=== PATIENT | female | born 1950 | race Caucasian/White ===

== ENCOUNTER 2016-03-05 15:13 | Inpatient (IN) | payer MEDICARE, OTHER ==
[~2016-03-05] VITALS: Ht 154.9 cm; Wt 87.0 kg
[~2016-03-05 15:13] MED LIST: GLIM2TAB PO; HYDR-3533 PO
[2016-03-05] MEDS ORDERED: SODIUM CHLOR 0.9% 1000 ML INJ 1,000 ML IV SCH (15:23)
[2016-03-05 15:24] VITALS: BP 170/92; PULSE 70; RESP 18; TEMP 98.2; O2SAT 98
--- NOTE | 2016-03-05 15:25 | PD ---
HPI Chief Complaint: PSYCH Time Seen by Provider: 15:25 Travel History International Travel<30 days: No Contact w/Intl Traveler<30days: No History of Present Illness HPI 65-year-old female presents to the emergency department by EMS for evaluation of altered mental status. Per EMS they were called by the patient's maid and her neighbor. Apparently the patient's maid came to clean her house today and noticed that the home was much more disheveled when it is normally very clean. She also noted that the patient had some behavioral changes and asked a neighbor to come talk to her. The neighbor also noted behavioral changes with the patient and called EMS. EMS reports the patient to be anxious with tachycardia around 120s. The patient is hyperverbal and is fixated on wanting us to "document" everything. 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 She has tangential speech and thoughts. She denies any medical complaints. Denies chest pain, shortness of breath, abdominal pain, headache, lightheadedness, dizziness, nausea, vomiting. Denies any drug or alcohol use. Denies suicidal or homicidal ideations. No other complaints. PFSH Past Medical History Cancer: No Cardiovascular Problems: No Diabetes: Yes Endocrine: No Genitourinary: No Hepatitis: No Hiatal Hernia: No Immune Disorder: No Musculoskeletal: No Neurologic: No Psychiatric: No Reproductive: No Respiratory: No Thyroid Disease: No Past Surgical History AICD: No Ear Surgery: No Eye Surgery: Yes (LEFT CATARACT EXTRACT., LEFT RETINAL REPAIR) Gynecologic Surgery: Yes (TAHBSO) Joint Replacement: No Neurologic Surgery: Yes (HEAD TRAUMA/ SCALP & CRANIAL REPAIR (MULTI SX'S)) Oral Surgery: No Pacemaker: No Other Surgery: Yes Social History Alcohol Use: Yes (rare) Tobacco Use: No Substance Use: No Allergies-Medications (Allergen,Severity, Reaction): Coded Allergies: Penicillin (Unverified Allergy, Severe, CONVULSIONS, 08/28/15) Darvon (Unverified Adverse Reaction, Severe, VOMITING, 08/28/15) Reported Meds & Prescriptions Reported Meds & Active Scripts Active Reported Hydrocodone-Acetaminophen 5-325 mg Tab 1 Tab PO Q4H PRN Lovastatin 20 Mg Tab 20 Mg PO DAILY Glyburide 5 Mg Tab 10 Mg PO BID Take with meals at the same time each day Review of Systems Except as stated in HPI: all other systems reviewed are Neg Physical Exam Narrative GENERAL: Well-nourished and well-developed female patient in no acute distress. SKIN: Warm and dry. HEAD: Normocephalic and atraumatic. EYES: No injection, drainage, or hyphema noted. PERRLA. EOMI. ENT: No nasal drainage noted. Oropharynx is clear. NECK: Supple and the trachea is midline. CARDIOVASCULAR: Regular rate and rhythm. RESPIRATORY: Breath sounds are equal bilaterally with no accessory muscle use, wheezing, rhonchi, or crackles. GASTROINTESTINAL: Abdomen is soft, non-tender, and nondistended. MUSCULOSKELETAL: No obvious deformities, swelling, cyanosis, or ecchymosis is present throughout the upper and lower extremities. Patient has full range of motion without any signs of neurovascular compromise. NEUROLOGICAL: Awake, alert, and oriented x 4. Normal speech and gait. Cranial nerves are grossly intact. Data Data Last Documented VS Vital Signs Date Time Temp Pulse Resp B/P Pulse Ox O2 Delivery O2 Flow Rate FiO2 03/05/16 15:57 97 18 169/74 98 Room Air 03/05/16 15:24 98.2 Orders Complete Blood Count With Diff (03/05/16 15:23) Comprehensive Metabolic Panel (03/05/16 15:23) Thyroid Stimulating Hormone (03/05/16 15:23) Drug Screen, Random Urine (03/05/16 15:23) Iv Access Insert/Monitor (03/05/16 15:23) Alcohol (Ethanol) (03/05/16 15:23) Psych Screen (03/05/16 15:23) Haloperidol Inj (Haldol Inj) (03/05/16 15:30) Lorazepam Inj (Ativan Inj) (03/05/16 15:30) Electrocardiogram (03/05/16 15:23) Sodium Chlor 0.9% 1000 Ml Inj (Ns 1000 M (03/05/16 15:23) Labs Laboratory Tests Test 03/05/16 15:30 White Blood Count 9.9 TH/MM3 Red Blood Count 4.17 MIL/MM3 Hemoglobin 12.5 GM/DL Hematocrit 36.7 % Mean Corpuscular Volume 88.1 FL Mean Corpuscular Hemoglobin 30.0 PG Mean Corpuscular Hemoglobin 34.0 % Concent Red Cell Distribution Width 13.9 % Platelet Count 352 TH/MM3 Mean Platelet Volume 7.6 FL Neutrophils (%) (Auto) 78.6 % Lymphocytes (%) (Auto) 13.5 % Monocytes (%) (Auto) 7.3 % Eosinophils (%) (Auto) 0.3 % Basophils (%) (Auto) 0.3 % Neutrophils # (Auto) 7.8 TH/MM3 Lymphocytes # (Auto) 1.3 TH/MM3 Monocytes # (Auto) 0.7 TH/MM3 Eosinophils # (Auto) 0.0 TH/MM3 Basophils # (Auto) 0.0 TH/MM3 CBC Comment DIFF FINAL Differential Comment Sodium Level 139 MEQ/L Potassium Level 3.8 MEQ/L Chloride Level 105 MEQ/L Carbon Dioxide Level 25.0 MEQ/L Anion Gap 9 MEQ/L Blood Urea Nitrogen 18 MG/DL Creatinine 0.87 MG/DL Estimat Glomerular Filtration 65 ML/MIN Rate Random Glucose 160 MG/DL Calcium Level 9.1 MG/DL Total Bilirubin 1.2 MG/DL Aspartate Amino Transf 15 U/L (AST/SGOT) Alanine Aminotransferase 32 U/L (ALT/SGPT) Alkaline Phosphatase 85 U/L Total Protein 7.9 GM/DL Albumin 4.1 GM/DL Thyroid Stimulating Hormone 1.630 uIU/ML 3rd Gen Ethyl Alcohol Level LESS THAN 3 MG/DL [facility] Medical Decision Making Medical Screen Exam Complete: Yes Emergency Medical Condition: Yes Differential Diagnosis Differential: Depression versus adjustment reaction versus anxiety versus PTSD versus psychosis NOS versus mood disorder NOS versus substance induced mood disorder versus ODD versus adjustment reaction versus schizophrenia versus bipolar disorder versus schizoaffective versus electrolyte abnormality Narrative Course 65-year-old female is brought to the emergency department for evaluation of behavioral disturbances. Patient is afebrile. Vital signs are stable. Physical examination is unremarkable. Patient is hyperverbal and has tangential speech. She seems in a manic episode and unable to make decisions for herself and therefore is placed under a Wayne Act by Dr. Hassan. IV access is obtained, labs are drawn and sent. Patient is given 2 mg of Ativan IV and 5 mg of Haldol IV. If labs are unremarkable she will be medically cleared for psychiatric evaluation and disposition. CBC is unremarkable. CMP is unremarkable. EtOH is less than 3. Patient has remained stable and without complaint while here in the emergency department. She is medically cleared for psychiatric evaluation and disposition. I discussed the case with my attending physician Dr. Hassan who is aware of the patients history, physical examination findings, and treatment plan. Diagnosis Primary Impression: Mood disorder Kathya Bentley Mar 05, 2016 15:25
[2016-03-05] MEDS ORDERED: LORazepam 2 MG/ML VIAL IV ONE (15:30)
[2016-03-05] MEDS ORDERED: HALOPERIDOL LACTATE 5 MG/ML AMP IV ONE (15:30)
[2016-03-05 15:57] VITALS: BP 169/74; PULSE 97; RESP 18; O2SAT 98
[2016-03-05 16:08] LABS: AUTOMATED NEUTROPHIL # 7.8 TH/MM3 (1.8-7.7); BASOPHIL % 0.3 % (0.0-2.0); EOSINOPHIL % 0.3 % (0.0-4.0); HEMATOCRIT 36.7 % (35.0-46.0); HEMO FLAGS DIFF FINAL; LYMPH % 13.5 % (9.0-44.0); LYMPHOCYTE # 1.3 TH/MM3 (1.0-4.8); MEAN CELL VOLUME 88.1 FL (80.0-100.0); MONO % 7.3 % (0.0-8.0); NEUT % 78.6 % (16.0-70.0); PLATELET COUNT 352 TH/MM3 (150-450); RED BLOOD COUNT 4.17 MIL/MM3 (4.00-5.30); RED CELL DISTRIBUTION WIDTH 13.9 % (11.6-17.2); WHITE BLOOD COUNT 9.9 TH/MM3 (4.0-11.0)
[2016-03-05] MEDS ORDERED: LOVA20TA PO (16:08)
[2016-03-05] MEDS ORDERED: GLYB5TAB3 PO (16:08)
[2016-03-05] MEDS ORDERED: HYDR-3516 PO (16:08)
[2016-03-05 16:31] LABS: ALT (GPT) 32 U/L (10-53); ANION GAP 9 MEQ/L (5-15); AST (GOT) 15 U/L (15-37); BLOOD UREA NITROGEN 18 MG/DL (7-18); CHLORIDE 105 MEQ/L (98-107); GLOMERULAR FILTRATION RATE 65 ML/MIN (>89); POTASSIUM 3.8 MEQ/L (3.5-5.1); SODIUM (NA) 139 MEQ/L (136-145)
[2016-03-05 16:40] LABS: ALKALINE PHOSPHATASE 85 U/L (45-117); TOTAL BILIRUBIN ADULT 1.2 MG/DL (0.2-1.0)
--- NOTE | 2016-03-05 18:40 | PD ---
Data Data Last Documented VS Vital Signs Date Time Temp Pulse Resp B/P Pulse Ox O2 Delivery O2 Flow Rate FiO2 03/05/16 15:57 97 18 169/74 98 Room Air 03/05/16 15:24 98.2 Orders Complete Blood Count With Diff (03/05/16 15:23) Comprehensive Metabolic Panel (03/05/16 15:23) Thyroid Stimulating Hormone (03/05/16 15:23) Drug Screen, Random Urine (03/05/16 15:23) Iv Access Insert/Monitor (03/05/16 15:23) Alcohol (Ethanol) (03/05/16 15:23) Psych Screen (03/05/16 15:23) Haloperidol Inj (Haldol Inj) (03/05/16 15:30) Lorazepam Inj (Ativan Inj) (03/05/16 15:30) Electrocardiogram (03/05/16 15:23) Sodium Chlor 0.9% 1000 Ml Inj (Ns 1000 M (03/05/16 15:23) Urinalysis - C+S If Indicated (03/05/16 18:09) Labs Laboratory Tests Test 03/05/16 15:30 White Blood Count 9.9 TH/MM3 Red Blood Count 4.17 MIL/MM3 Hemoglobin 12.5 GM/DL Hematocrit 36.7 % Mean Corpuscular Volume 88.1 FL Mean Corpuscular Hemoglobin 30.0 PG Mean Corpuscular Hemoglobin 34.0 % Concent Red Cell Distribution Width 13.9 % Platelet Count 352 TH/MM3 Mean Platelet Volume 7.6 FL Neutrophils (%) (Auto) 78.6 % Lymphocytes (%) (Auto) 13.5 % Monocytes (%) (Auto) 7.3 % Eosinophils (%) (Auto) 0.3 % Basophils (%) (Auto) 0.3 % Neutrophils # (Auto) 7.8 TH/MM3 Lymphocytes # (Auto) 1.3 TH/MM3 Monocytes # (Auto) 0.7 TH/MM3 Eosinophils # (Auto) 0.0 TH/MM3 Basophils # (Auto) 0.0 TH/MM3 CBC Comment DIFF FINAL Differential Comment Sodium Level 139 MEQ/L Potassium Level 3.8 MEQ/L Chloride Level 105 MEQ/L Carbon Dioxide Level 25.0 MEQ/L Anion Gap 9 MEQ/L Blood Urea Nitrogen 18 MG/DL Creatinine 0.87 MG/DL Estimat Glomerular Filtration 65 ML/MIN Rate Random Glucose 160 MG/DL Calcium Level 9.1 MG/DL Total Bilirubin 1.2 MG/DL Aspartate Amino Transf 15 U/L (AST/SGOT) Alanine Aminotransferase 32 U/L (ALT/SGPT) Alkaline Phosphatase 85 U/L Total Protein 7.9 GM/DL Albumin 4.1 GM/DL Thyroid Stimulating Hormone 1.630 uIU/ML 3rd Gen Ethyl Alcohol Level LESS THAN 3 MG/DL MDM Supervised Visit with JESSEE: Yes Narrative Course The history, exam, and medical decision-making in the associated midlevel provider note were completed with my assistance. I reviewed and agree with the findings presented. I attest that I had a [id number] encounter with the patient on the same day, and personally performed and documented my assessment and findings in the medical record. *My assessment and Findings: This is a 65-year-old female who presents to the emergency department having been found by her park superintendent to be disorganized and messy which is unlike her. She had a neighbor come over who confirm that the patient was acting bizarrely. 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 She points to multiple phone numbers which are written on the top of a folder but can't articulate why she needs to call all of these people. She appears to be an acute mica and her decision-making capacity is impaired. Patient was given 2 mg of Ativan and 5 Haldol and she was placed under a Wayne act for psychiatric evaluation. Diagnosis Primary Impression: Mood disorder Sonal Hassan MD Mar 05, 2016 18:40
[2016-03-05 19:25] VITALS: BP 162/76; PULSE 94; RESP 14; O2SAT 99
[2016-03-05 19:29] LABS: BACTERIA, URINE RARE /hpf; BLOOD, URINE NEG (NEG); COMMENT (UR) CULT NOT INDICATED; CULTURE IF INDICATED CULT NOT INDICATED; GLUCOSE,URINE TRACE mg/dL (NEG); HYALINE CAST, URINE 1 /lpf (RARE); KETONE, URINE 40 mg/dL (NEG); MUCUS URINE MOD /lpf (OCC); NITRITE,URINE NEG (NEG); PH, URINE 5.5 (5.0-8.5); SQUAMOUS EPITHELIAL CELL URINE 2 /hpf (0-5); URINE COLOR YELLOW (YELLW/STRAW)
[2016-03-05 19:32] LABS: AMPHETAMINE, URINE NEG (NEG); BARBITURATES, URINE NEG (NEG); COCAINE, URINE NEG (NEG)
[2016-03-05 20:30] VITALS: BP 156/68; PULSE 90; RESP 16; O2SAT 96
[2016-03-05 21:41] VITALS: BP 158/72; PULSE 89; RESP 16; O2SAT 97
--- NOTE | 2016-03-05 21:57 | EKG ---
Date Performed: 03/05/2016 Time Performed: 15:43:46 PTAGE: 65 years EKG: SINUS TACHYCARDIA LOW QRS VOLTAGE IN PRECORDIAL LEADS Nonspecific ST and T wave abnormaliti es ABNORMAL RHYTHM ECG PREVIOUS TRACING : 04/15/2015 14.27 Rate has increased DOCTOR: Bryan Person Interpretating Date/Time 03/05/2016 21:56:28
[2016-03-05 22:48] VITALS: BP 139/86; PULSE 95; RESP 19; TEMP 98.7; O2SAT 97
[2016-03-06] MEDS ORDERED: diphenhydrAMINE HCL 50 MG/ML VIAL IM PRN (01:00)
[2016-03-06] MEDS ORDERED: ALUMINUM/MAGNESIUM/SIMETH 30 ML CUP PO PRN ×2 (01:00→11:15)
[2016-03-06] MEDS ORDERED: ACETAMINOPHEN 325 MG TAB PO PRN ×2 (01:00→11:15)
[2016-03-06] MEDS ORDERED: MAGNESIUM HYDROXIDE SUSP 30 ML CUP PO PRN ×2 (01:00→11:15)
[2016-03-06] MEDS ORDERED: diphenhydrAMINE HCL 50 MG CAP PO PRN ×2 (01:00→11:15)
[2016-03-06 01:20] VITALS: BP 162/79; PULSE 87; RESP 18; TEMP 97.1; O2SAT 95
[2016-03-06 06:13] VITALS: BP 140/88; PULSE 86; RESP 16; TEMP 97.4; O2SAT 98
--- NOTE | 2016-03-06 11:00 | PD.CONS ---
[facility] By [facility] Reason for Consult Diabetic symptoms? Primary Care Physician Bjorn Herrera MD Diagnoses: History of Present Illness Patient is 65-year-old female who came into the hospital after neighbor in house keeper states patient noted behavioral changes. She is now admitted to inpatient psychiatry unit for further evaluation. Consulted for medical management. Patient seen today. Speech continues to be pressured. Anxious. States she is trying to get some rest. Reports she has diabetes, high cholesterol. Her diabetes is well managed according to her. She is being followed by Dr. Da Silva as an outpatient and states that her hemoglobin A1c is okay, and will have a repeat in 6 months. She only takes glyburide. She also takes pravastatin for high cholesterol. States she is been compliant with her medication. Reports she's been in a lot of stress lately unable to eat and sleep for 5 days. States that her long-time friend recently and her mother is also dieting at [facility] and being cared for by hospice. States that she is trying to get all her son and other people but unable to because all her contact numbers are on her cell phone which was Locked away. Otherwise, denies pain and discomfort. Denies SOB/ dyspnea. Denies chestpain, palpitations, headaches, dizziness. Denies fevers, chills, n/v/d. Review of Systems Constitutional: DENIES: Fever, Chills, Change in appetite Endocrine: DENIES: Heat/cold intolerance Eyes: DENIES: Blurred vision, Eye pain Other Negative except for what is noted on history of present illness. Past Family Social History Allergies: Coded Allergies: Penicillin (Unverified Allergy, Severe, CONVULSIONS, 08/28/15) Darvon (Unverified Adverse Reaction, Severe, VOMITING, 08/28/15) Past Medical History Diabetes Past Surgical History Left cataract extraction Left retinal repair Total abdominal hysterectomy and bilateral salpingo-oophorectomy Sculpin cranial repair secondary to head trauma Reported Medications Hydrocodone-Acetaminophen 5-325 mg Tab 1 Tab PO Q4H PRN Lovastatin 20 Mg Tab 20 Mg PO DAILY Glyburide 5 Mg Tab 10 Mg PO BID Take with meals at the same time each day Active Ordered Medications Current Medications Medications (Trade) Dose Ordered Sig/Evita Route Start Time Stop Time Status Last Admin (Atarax) 50 mg Q6H PRN PO 03/06/16 01:00 (Benadryl) 50 mg Q6H PRN PO 03/06/16 01:00 (Benadryl Inj) 50 mg Q6H PRN IM 03/06/16 01:00 (Tylenol) 650 mg Q4H PRN PO 03/06/16 01:00 (Milk Of Magnesia Liq) 30 ml DAILY PRN PO 03/06/16 01:00 (Mag-Al Plus Susp Liq) 30 ml Q6H PRN PO 03/06/16 01:00 (Diabeta) 10 mg BID PO 03/06/16 09:00 (Pravachol) 20 mg DAILY PO 03/06/16 09:00 Family History Diabetes in her family Social History Occasional alcohol use Denies tobacco use Denies illicit drug use Physical Exam Vital Signs Vital Signs Date Time Temp Pulse Resp B/P Pulse Ox O2 Delivery O2 Flow Rate FiO2 03/06/16 06:13 97.4 86 16 140/88 98 03/06/16 01:20 97.1 87 18 162/79 95 03/05/16 22:48 98.7 95 19 139/86 97 Room Air 03/05/16 21:41 89 16 158/72 97 Room Air 03/05/16 20:30 90 16 156/68 96 Room Air 03/05/16 19:25 94 14 162/76 99 Room Air 03/05/16 15:57 97 18 169/74 98 Room Air 03/05/16 15:24 98.2 70 18 170/92 98 Physical Exam GENERAL: This is a well-nourished, well-developed patient, in no apparent distress. SKIN: No rashes, ecchymoses or lesions. Cool and dry. HEAD: Atraumatic. Normocephalic. No temporal or scalp tenderness. EYES: Pupils equal round and reactive. Extraocular motions intact. No scleral icterus. No injection or drainage. ENT: Nose without bleeding. Throat without erythema. Uvula midline. Airway patent. NECK: Trachea midline. No JVD or lymphadenopathy. Supple, nontender, no meningeal signs. CARDIOVASCULAR: Regular rate and rhythm without murmurs, gallops, or rubs. RESPIRATORY: Clear to auscultation. Breath sounds equal bilaterally. No wheezes , rales, or rhonchi. GASTROINTESTINAL: Abdomen soft, non-tender, nondistended. No hepato-splenomegaly , or palpable masses. No guarding. MUSCULOSKELETAL: Extremities without clubbing, cyanosis, pitting +2 bilateral lower extremity edema. No joint tenderness, effusion, or edema noted. No calf tenderness. Negative Homans sign bilaterally. NEUROLOGICAL: Awake and alert. Cranial nerves II through XII intact. Motor and sensory grossly within normal limits. Five out of 5 muscle strength in all muscle groups. Normal speech. Laboratory Laboratory Tests Test 03/05/16 03/05/16 15:30 19:05 White Blood Count 9.9 Red Blood Count 4.17 Hemoglobin 12.5 Hematocrit 36.7 Mean Corpuscular Volume 88.1 Mean Corpuscular Hemoglobin 30.0 Mean Corpuscular Hemoglobin 34.0 Concent Red Cell Distribution Width 13.9 Platelet Count 352 Mean Platelet Volume 7.6 Neutrophils (%) (Auto) 78.6 Lymphocytes (%) (Auto) 13.5 Monocytes (%) (Auto) 7.3 Eosinophils (%) (Auto) 0.3 Basophils (%) (Auto) 0.3 Neutrophils # (Auto) 7.8 Lymphocytes # (Auto) 1.3 Monocytes # (Auto) 0.7 Eosinophils # (Auto) 0.0 Basophils # (Auto) 0.0 CBC Comment DIFF FINAL Differential Comment Sodium Level 139 Potassium Level 3.8 Chloride Level 105 Carbon Dioxide Level 25.0 Anion Gap 9 Blood Urea Nitrogen 18 Creatinine 0.87 Estimat Glomerular Filtration 65 Rate Random Glucose 160 Calcium Level 9.1 Total Bilirubin 1.2 Aspartate Amino Transf 15 (AST/SGOT) Alanine Aminotransferase 32 (ALT/SGPT) Alkaline Phosphatase 85 Total Protein 7.9 Albumin 4.1 Thyroid Stimulating Hormone 1.630 3rd Gen Ethyl Alcohol Level LESS THAN 3 Urine Color YELLOW Urine Turbidity HAZY Urine pH 5.5 Urine Specific [place] 1.030 Urine Protein 30 Urine Glucose (UA) TRACE Urine Ketones 40 Urine Occult Blood NEG Urine Nitrite NEG Urine Bilirubin NEG Urine Urobilinogen LESS THAN 2.0 Urine Leukocyte Esterase NEG Urine WBC 2 Urine Squamous Epithelial 2 Cells Urine Bacteria RARE Urine Hyaline Casts 1 Urine Mucus MOD Microscopic Urinalysis Comment CULT NOT INDICATED Urine Opiates Screen NEG Urine Barbiturates Screen NEG Urine Amphetamines Screen NEG Urine Benzodiazepines Screen NEG Urine Cocaine Screen NEG Urine Cannabinoids Screen NEG Result Diagram: 03/05/16 1530 03/05/16 1530 Assessment and Plan Problem List: (1) DM type 2 (diabetes mellitus, type 2) ICD Code: E11.9 Status: Chronic (2) HLD (hyperlipidemia) ICD Code: E78.5 Status: Acute Assessment and Plan Patient is 65-year-old female who came into the hospital after neighbor in house keeper states patient noted behavioral changes. She is now admitted to inpatient psychiatry unit for further evaluation. Consulted for medical management. Behavioral disturbances -managed by psychiatry team DM2 - patient is taking glyburide 5 mg twice a day at home with meals. Continue home meds. - Follow-up hemoglobin A1c HLD - cont pravastatin - Follow-up lipid profile Labs and been reviewed CBC unremarkable, BMP unremarkable, UA negative DVT Prop early ambulation Thank you for this consultation. We will follow patient with you. Written by Jaxson Isidro, acting as scribe for Dr. Finnegan on 03/06/16 at 14: 52. Code Status Full Code Discussed Condition With Patient, nursing Attending Statement The documentation accurately reflects the work performed [id number] by me on at 14:52. Jaxson Hopson Mar 06, 2016 11:00 Torin Romo MD Mar 07, 2016 23:23
[2016-03-06] MEDS: glyBURIDE 5 MG TAB PO SCH ×2 (11:03→21:06)
[2016-03-06] MEDS: PRAVASTATIN SOD 20 MG TAB PO SCH (11:03)
--- NOTE | 2016-03-06 11:29 | HHI.HP ---
Provisional Diagnosis Admission Date Mar 06, 2016 at 00:16 [place]. Mood disorder F 39 Certification of Person's Competence To Provide Express and Informed Consent I have personally examined Larissa Blandon , a person being served at [facility] on, Mar 06, 2016 11:16. Express and informed consent means consent voluntarily given in writing, by a competent person, after sufficient explanation and disclosure of the subject matter involved to enable the person to make a knowing and willful decision without any element of force, fraud, deceit, duress, or other form of constraint or coercion. This person is 18 years of age or older, is not now known to be incompetent to consent to treatment with a guardian advocate, and does not have a health care surrogate or proxy currently making medical treatment decisions. I have found this person to be one of the following: [] Competent to provide express and informed consent, as defined above, for voluntary admission to this facility and is competent to provide express and informed consent for treatment. He/she has the consistent capacity to make well reasoned, willful, and knowing decisions concerning his or her medical or mental health treatment. The person fully and consistently understands the purpose of the admission for examination/placement and is fully capable of personally exercising all rights assured [place] Incompetent to provide express and informed consent to voluntary admission, and this is incompetent to provide express and informed consent to treatment. The person must be transferred to involuntary status and a petition for a guardian advocate filed with the Circuit Court. [x] Refusing to provide express and informed consent to voluntary admission but is competent to provide express and informed consent for treatment. The person must be discharged or transferred to involuntary status. Form shall be completed within 24 hours of a person's arrival at the receiving facility and filed in the clinical record of each person: 1. Admitted on a voluntary basis 2. Permitted to provide express and informed consent to his/her own treatment 3. Allowed to transfer from involuntary to voluntary status 4. Prior to permitting a person to consent to his or her own treatment after having been previously found incompetent to consent to treatment. History of Present Illness Capacity: Has Capacity HPI Patient is a 65-year-old white female who comes here under [place] act signed by Sonal mooney dated March 05, 2016 3:26 PM stating patient is disorganized manic symptoms patient is disorganized with pressured speech agitated confused unable to make her own decisions. Patient is seen screened in the ED urine toxicology negative. Patient was given 2 mg Ativan and 5 mg of Haldol IV in the ED. It appears the paramedics were called the patient's home by the patient 's made and patient's neighbor. The made noted when she came to help clean the house that the house was markedly disheveled and in disarray and that the patient was hyperverbal fixated on wanting things to be documented for her. The paramedics also noted that she was tachycardic with a rate in the 120s she was tangential circumstantial but showing no insight into her problems. Thus [place] act was started by the emergency department physician. At the present time patient sitting in her room nurse Radha and counselor Raeann present throughout session patient continues markedly tangential circumstantial hyperverbal needing 15 minutes to respond to the question "why are you here" patient became somewhat angry and irritable with the multiple attempts I made to redirect her to focus on the question. 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 She states she is from [place] and that's why she is somewhat hyper talking fast and racing thoughts. She denies any prior psychiatric contact hospitalization his psychotropic medications. She also focus in affect that she has a 90 30 mother who was in a alf and hospice at the present time that patient is not slept for 4+ days related to this she denies any alcohol or drugs with this denies any voices or visions of this denies any suicidality or homicidality. Need to answer my part to describe the behaviors that related to a bipolar disorder and to describe the effects of the medication as helping to continuing them is met with denial and irritability. However at the present time patient does meet criteria for further observation and assessment under the [place] act I'll do first opinion requests a second opinion that for she does have capacity to make she is concerning treatment at this time. At this time we'll offer her relief Benadryl Tylenol and Atarax. Review of Systems ROS Limitations: Altered Mental Status, Uncooperative, Poor Historian Constitutional: DENIES: Diaphoretic episodes, Fatigue, Fever, Weight gain, Weight loss, Chills, Dizziness, Change in appetite, Night Sweats Endocrine: DENIES: Abnorml menstrual pattern, Heat/cold intolerance, Polydipsia , Polyuria, Polyphagia Eyes: DENIES: Blurred vision, Diplopia, Eye inflammation, Eye pain, Vision loss , Photosensitivity, Double Vision Ears, nose, mouth, throat: DENIES: Tinnitus, Hearing loss, Vertigo, Nasal discharge, Oral lesions, Throat pain, Hoarseness, Ear Pain, Running Nose, Epistaxis, Sinus Pain, Toothache, Odynophagia Respiratory: DENIES: Apneas, Cough, Snoring, Wheezing, Hemoptysis, Sputum production, Shortness of breath Cardiovascular: DENIES: Chest pain, Palpitations, Syncope, Dyspnea on Exertion , PND, Lower Extremity Edema, Orthopnea, Claudication Gastrointestinal: DENIES: Abdominal pain, Black stools, Bloody stools, Constipation, Diarrhea, Nausea, Vomiting, Difficulty Swallowing, Anorexia Genitourinary: DENIES: Abnormal vaginal bleeding, Dysmenorrhea, Dyspareunia, Sexual dysfunction, Urinary frequency, Urinary incontinence, Urgency, Hematuria , Dysuria, Nocturia, Vaginal discharge Musculoskeletal: DENIES: Joint pain, Muscle aches, Stiffness, Joint Swelling, Back pain, Neck pain Integumentary: DENIES: Abnormal pigmentation, Pruritus, Rash, Nail changes, Breast masses, Breast skin changes, Nipple discharge Hematologic/lymphatic: DENIES: Bruising, Lymphadenopathy Immunologic/allergic: DENIES: Eczema, Urticaria Psychiatric: COMPLAINS OF: Agitation Other Insomnia, rapid pressured speech, racing thoughts Past Psych History Psychological trauma history Denies Violence risk - others (6 mos) Denies Violence risk - self (6 mos) Denies Substance Abuse History Drugs/Alcohol past 12 months Denies Past Family Social History Coded Allergies: Penicillin (Unverified Allergy, Severe, CONVULSIONS, 08/28/15) Darvon (Unverified Adverse Reaction, Severe, VOMITING, 08/28/15) Past Medical History 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" Reported Medications Hydrocodone-Acetaminophen 5-325 mg Tab1 Tab PO Q4H PRN (PAIN) Ref 0 03/05/16 Lovastatin 20 Mg Tab20 Mg PO DAILY #30 TAB Ref 0 03/05/16 Glyburide 5 Mg Tab10 Mg PO BID #60 TAB Ref 0 Take with meals at the same time each day 03/05/16 Current Medications Medications (Trade) Dose Ordered Sig/Evita Route Start Time Stop Time Status Last Admin (Atarax) 50 mg Q6H PRN PO 03/06/16 01:00 (Benadryl) 50 mg Q6H PRN PO 03/06/16 01:00 (Benadryl Inj) 50 mg Q6H PRN IM 03/06/16 01:00 (Tylenol) 650 mg Q4H PRN PO 03/06/16 01:00 (Milk Of Magnesia Liq) 30 ml DAILY PRN PO 03/06/16 01:00 (Mag-Al Plus Susp Liq) 30 ml Q6H PRN PO 03/06/16 01:00 (Diabeta) 10 mg BID PO 03/06/16 09:00 03/06/16 11:03 (Pravachol) 20 mg DAILY PO 03/06/16 09:00 03/06/16 11:03 Family History Vague history mental health issues with her mother Social History Patient is has an adult son and daughter Patient's Strengths (min. 2) Patient verbal irritable axis health care Physical Exam Patient seen screen in ED exam reviewed and agreed with the vital signs blood pressure 140/88 pulse 86 respirations 16 Vital Signs Vital Signs Date Time Temp Pulse Resp B/P Pulse Ox O2 Delivery O2 Flow Rate FiO2 03/06/16 06:13 97.4 86 16 140/88 98 03/05/16 22:48 Room Air Mental Status Examination Alert oriented white female stockily built with thick somewhat disheveled very dark red louis colored hair with intense eye contact Appearance Somewhat disheveled Speech: Pressured, Rapid, Circumstantial, Tangential Orientation: x3 Memory: Unremarkable Thought Process: Circumstantial, Loose Association, Tangential Thought Content: Unremarkable Hallucination Type: None Attention and Concentration: Easily Distracted Suicidal Ideation: No Previous Suicide Attempts: No Homicidal Ideation: No Previous Homicide Attempts: No Insight: Poor Judgement: Poor Affect: Other (increased range and intensity) Mood: Irritable, Manic Motor Activity: Normal gait Assessment & Plan Problem List: (1) Mood disorder ICD Code: F39 Assessment & Plan Estimated LOS: 5-7 days patient showing signs of mica rapid pressured speech grandiosity hyperverbal reality markedly tangential and circumstantial. It appears she did slow somewhat with the medications given in the ED (IV Ativan and Haldol). For now we'll continue to observe under the [place] act patient does meet criteria to be retained at this time I will do first opinion requests a second opinion Discharge Planning To be determined Request HC Surrog/Guard Advoc?: No Isidro Keane MD Mar 06, 2016 11:29
[2016-03-06] MEDS: hydrOXYzine HCL 50 MG TAB PO PRN (18:28)
[2016-03-06 19:45] VITALS: BP 122/68; PULSE 86; RESP 16; TEMP 97.4; O2SAT 98
[2016-03-07 06:05] VITALS: BP 173/84; PULSE 91; RESP 16; TEMP 97.9
[2016-03-07] MEDS: PRAVASTATIN SOD 20 MG TAB PO SCH (09:00)
[2016-03-07] MEDS: glyBURIDE 5 MG TAB PO SCH ×2 (09:00→21:41)
--- NOTE | 2016-03-07 18:38 | PD.CONS ---
Provisional Diagnosis Admission Date Mar 06, 2016 at 00:16 [place]. Mood disorder F 39 History of Present Illness Service Psychiatry Consult Requested By Psychiatry Reason for Consult 2nd Opinion Primary Care Physician Bjorn Herrera MD HPI Pt seen and discussed with RN. Chart reviewed. Pt is a 65 YOWF who presents to [facility] under a BA taken out in ED due to mica. Pt was disorganized and agiated in the ED and was given haldol and ativan due to agitation. Pt is noted to have pressured speech and tangential thought process. 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 She admits to poor sleep and states that she hasn't slept in 4 days prior to hospitalization but did sleep yesterday. She admits to being under a lot of stress and states that her house is disheveled and in disarray which is "not me at all". However, pt refuses treatment stating that she will doesn't think that she needs medication or hospitalization. Staff report that pt has been intrusive and paranoid, reporting that something is living under her bed. She denies SI/HI. Past Family Social History Coded Allergies: Penicillin (Unverified Allergy, Severe, CONVULSIONS, 08/28/15) Darvon (Unverified Adverse Reaction, Severe, VOMITING, 08/28/15) Reported Medications Hydrocodone-Acetaminophen 5-325 mg Tab1 Tab PO Q4H PRN (PAIN) Ref 0 03/05/16 Lovastatin 20 Mg Tab20 Mg PO DAILY #30 TAB Ref 0 03/05/16 Glyburide 5 Mg Tab10 Mg PO BID #60 TAB Ref 0 Take with meals at the same time each day 03/05/16 Current Medications Medications (Trade) Dose Ordered Sig/Evita Route Start Time Stop Time Status Last Admin (Atarax) 50 mg Q6H PRN PO 03/06/16 01:00 03/06/16 18:28 (Tylenol) 650 mg Q4H PRN PO 03/06/16 01:00 (Milk Of Magnesia Liq) 30 ml DAILY PRN PO 03/06/16 01:00 (Mag-Al Plus Susp Liq) 30 ml Q6H PRN PO 03/06/16 01:00 (Diabeta) 10 mg BID PO 03/06/16 09:00 1/8/17 09:00 (Pravachol) 20 mg DAILY PO 03/06/16 09:00 03/07/16 09:00 (Benadryl) 50 mg HS PRN PO 03/06/16 11:15 Family History mother with dementia Social History lives alone, previously lived in [place] prior to moving to [place], retired, but 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 Patient's Strengths (min. 2) Educated, access to health care Physical Exam Vital Signs Vital Signs Date Time Temp Pulse Resp B/P Pulse Ox O2 Delivery O2 Flow Rate FiO2 03/07/16 06:05 97.9 91 16 173/84 03/06/16 19:45 98 03/05/16 22:48 Room Air Mental Status Examination Speech: Pressured, Rapid, Circumstantial, Tangential Orientation: x3 Memory: Unremarkable Thought Process: Circumstantial, Loose Association, Tangential Thought Content: Unremarkable Hallucination Type: None Attention and Concentration: Easily Distracted Suicidal Ideation: No Previous Suicide Attempts: No Homicidal Ideation: No Previous Homicide Attempts: No Insight: Poor Judgement: Poor Affect: Other (elevated) Mood: Manic Motor Activity: Normal gait Assessment & Plan Problem List: (1) Mood disorder ICD Code: F39 Assessment & Plan I agree that pt meets BA criteria. 2nd opinon completed. Estimated LOS: days Request HC Surrog/Guard Advoc?: Muriel Quintero MD Mar 07, 2016 18:38
[2016-03-07 19:38] VITALS: BP 167/78; PULSE 92; RESP 18; TEMP 98.3; O2SAT 99
[2016-03-07] MEDS: hydrOXYzine HCL 50 MG TAB PO PRN (22:36)
[2016-03-08 06:06] VITALS: BP 162/80; PULSE 88; RESP 18; TEMP 98.3; O2SAT 96
[2016-03-08 08:00] LABS: ANION GAP 8 MEQ/L (5-15); BICARBONATE 27.3 MEQ/L (21.0-32.0); BLOOD UREA NITROGEN 13 MG/DL (7-18); CHLORIDE 106 MEQ/L (98-107); GLOMERULAR FILTRATION RATE 97 ML/MIN (>89); HDL CHOLESTEROL 59.2 MG/DL (40.0-60.0); LDL CHOLESTEROL 93 MG/DL (0-99); SODIUM (NA) 141 MEQ/L (136-145)
[2016-03-08] MEDS: glyBURIDE 5 MG TAB PO SCH ×2 (09:00→21:25)
[2016-03-08] MEDS: PRAVASTATIN SOD 20 MG TAB PO SCH (09:00)
--- NOTE | 2016-03-08 11:28 | HHI.PYPN ---
Subjective Remarks Patient was seen and discussed with the entry level staff accountant. Patient reported that she has been here moved from [place] to look after her mother was dying. Patient does not realize but she does admit to having some problem with sleep for 4 or 5 days and her mind was racing and she became talkative and came to the hospital. But patient claimed that she is the only one who is looking after her mother and has power of supervisor nurse and she is worried patient could be reassured. She denied any suicidal and/or homicidal ideation or plan. She denied any grandiose delusion at this time or any spending spree. But she claimed that she is from [facility] and always talks fast. She agreed to stay for few more days to stabilize on the medication. No side effects were complained. No behavior problem reported. Continue with the same treatment Review of Systems Except as stated in HPI: all other systems reviewed are Neg Psychiatric: COMPLAINS OF: Anxiety, Depression Objective Alert: Yes [place]: Person, Place, Situation Mood: Anxious, Depressed, Other (worried about her mother) Affect: Labile Memory Intact: Recent (mildly impaired) Hallucinations: Other (patient denies any active auditory or visual hallucination) Delusions: No Delusion Type: Other (patient had some rapid speech but other than that denied any grandiose delusion or any spending spree) Suicidal: Ideation (patient denies any suicidal ideation intentions or plan) Homicidal: Ideation (denied any homicidal ideation intentions or plan) Insight/Judgement Seems fair Remarks Gait normal language normal. Fund of knowledge average. Attention and concentration normal Labs Test 03/08/16 06:57 Sodium Level 141 MEQ/L Potassium Level 4.0 MEQ/L Chloride Level 106 MEQ/L Carbon Dioxide Level 27.3 MEQ/L Anion Gap 8 MEQ/L Blood Urea Nitrogen 13 MG/DL Creatinine 0.62 MG/DL Estimat Glomerular Filtration 97 ML/MIN Rate Random Glucose 116 MG/DL Calcium Level 8.6 MG/DL Triglycerides Level 111 MG/DL Cholesterol Level 174 MG/DL LDL Cholesterol 93 MG/DL HDL Cholesterol 59.2 MG/DL Cholesterol/HDL Ratio 2.93 RATIO Vitals/IOs Vital Signs Date Time Temp Pulse Resp B/P Pulse Ox O2 Delivery O2 Flow Rate FiO2 03/08/16 06:06 98.3 88 18 162/80 96 03/05/16 22:48 Room Air Assessment & Plan Problem List: (1) Mood disorder ICD Code: F39 Assessment & Plan Estimated LOS: days Justification for Cont. Inpt. Monitoring of the medication to stabilize her hypomanic behavior Request HC Surrog/Guard Advoc?: No Onel Garcia MD Mar 08, 2016 11:28
[2016-03-08] MEDS ORDERED: PILL SPLITTER OTHER PRN (11:45)
[2016-03-08 12:54] LABS: HEMOGLOBIN A1a 1.2 %; HEMOGLOBIN A1b 0.9 %; HEMOGLOBIN Ao 82.6 %; HEMOGLOBIN F 1.5 %; HEMOGLOBIN LA1C 2.1 %; HEMOGLOBIN P3 4.1 %
[2016-03-08] MEDS ORDERED: PADIMATE (CHAPSTICK) 4.5 GM TUBE TOP PRN (13:45)
[2016-03-08] MEDS: hydrOXYzine HCL 50 MG TAB PO PRN (17:25)
[2016-03-08 19:42] VITALS: BP 166/77; PULSE 80; RESP 17; TEMP 98.1
[2016-03-08] MEDS ORDERED: QUEtiapine FUMARATE 100 MG TAB PO SCH (21:00)
[2016-03-09 06:13] VITALS: BP 169/75; PULSE 86; RESP 18; TEMP 97.3; O2SAT 100
[2016-03-09] MEDS: PRAVASTATIN SOD 20 MG TAB PO SCH (09:08)
[2016-03-09] MEDS: glyBURIDE 5 MG TAB PO SCH ×2 (09:09→20:24)
--- NOTE | 2016-03-09 11:56 | HHI.PYPN ---
Subjective Remarks Patient was seen and discussed with the staffing branch manager. Patient reported that she has been feeling better she still worried about her mother. But she could be reassured. Patient claimed that the medication does seem to have helped her and denied any racing thoughts or grandiose ideas or delusion at this time. Denied any suicidal ideation intentions or plan. Willing to take the medication and follow-up as an outpatient after discharge. Continue with the same treatment. account services analyst to assist and aftercare and discharge planning. Review of Systems Except as stated in HPI: all other systems reviewed are Neg Psychiatric: COMPLAINS OF: Anxiety, Mood changes, Depression Objective Alert: Yes [place]: Person, Place, Situation Mood: Anxious, Depressed, Other (worried about her mother) Affect: Labile Memory Intact: Recent (mildly impaired) Hallucinations: Other (patient denies any active auditory or visual hallucination) Delusions: No Delusion Type: Other (patient had some rapid speech but other than that denied any grandiose delusion or any spending spree) Suicidal: Ideation (patient denies any suicidal ideation intentions or plan) Homicidal: Ideation (denied any homicidal ideation intentions or plan) Insight/Judgement Fair Vitals/IOs Vital Signs Date Time Temp Pulse Resp B/P Pulse Ox O2 Delivery O2 Flow Rate FiO2 03/09/16 06:13 97.3 86 18 169/75 100 03/05/16 22:48 Room Air Assessment & Plan Problem List: (1) Mood disorder ICD Code: F39 Assessment & Plan Estimated LOS: days Justification for Cont. Inpt. Monitoring of the medication to stabilize her hypomania Request HC Surrog/Guard Advoc?: No Onel Garcia MD Mar 09, 2016 11:56
[2016-03-09] MEDS ORDERED: DEXTROSE 50% IN WATER 50 ML VIAL(D50) IV PUSH PRN (16:00)
[2016-03-09] MEDS ORDERED: INSULIN ASPART SUPPLEMENTAL SCALE SQ SCH (16:00)
[2016-03-09] MEDS ORDERED: LISINOPRIL 20 MG TAB PO SCH (16:00)
[2016-03-09] MEDS ORDERED: GLUCAGON 1 MG/ML VIAL OTHER PRN (16:00)
[2016-03-09] MEDS ORDERED: cloNIDine HCL 0.1 MG TAB PO PRN (17:00)
--- NOTE | 2016-03-09 17:36 | HHI.PR ---
Subjective Remarks Patient denies cp/sob states she feels very well denies been hypertensive BP noted to be elevated Objective Vitals Vital Signs Date Time Temp Pulse Resp B/P Pulse Ox O2 Delivery O2 Flow Rate FiO2 03/09/16 06:13 97.3 86 18 169/75 100 03/08/16 19:42 98.1 80 17 166/77 Result Diagram: 03/05/16 1530 03/08/16 0657 Objective Remarks GENERAL: This is a well-nourished, well-developed patient, in no apparent distress. SKIN: No rashes, ecchymoses or lesions. Cool and dry. HEAD: Atraumatic. Normocephalic. No temporal or scalp tenderness. EYES: Pupils equal round and reactive. Extraocular motions intact. No scleral icterus. No injection or drainage. ENT: Nose without bleeding. Throat without erythema. Uvula midline. Airway patent. NECK: Trachea midline. No JVD or lymphadenopathy. Supple, nontender, no meningeal signs. CARDIOVASCULAR: Regular rate and rhythm without murmurs, gallops, or rubs. RESPIRATORY: Clear to auscultation. Breath sounds equal bilaterally. No wheezes , rales, or rhonchi. GASTROINTESTINAL: Abdomen soft, non-tender, nondistended. No hepato-splenomegaly , or palpable masses. No guarding. MUSCULOSKELETAL: Extremities without clubbing, cyanosis, pitting +2 bilateral lower extremity edema. No joint tenderness, effusion, or edema noted. No calf tenderness. Negative Homans sign bilaterally. NEUROLOGICAL: Awake and alert. Cranial nerves II through XII intact. Motor and sensory grossly within normal limits. Five out of 5 muscle strength in all muscle groups. Normal speech. Medications and IVs Current Medications Medications (Trade) Dose Ordered Sig/Evita Route Start Time Stop Time Status Last Admin (Atarax) 50 mg Q6H PRN PO 03/06/16 01:00 03/08/16 17:25 (Tylenol) 650 mg Q4H PRN PO 03/06/16 01:00 03/08/16 04:42 (Milk Of Magnesia Liq) 30 ml DAILY PRN PO 03/06/16 01:00 (Mag-Al Plus Susp Liq) 30 ml Q6H PRN PO 03/06/16 01:00 (Diabeta) 10 mg BID PO 03/06/16 09:00 03/09/16 09:09 (Pravachol) 20 mg DAILY PO 03/06/16 09:00 03/09/16 09:08 (Benadryl) 50 mg HS PRN PO 03/06/16 11:15 03/09/16 03:09 (Pill Splitter) 1 ea UNSCH PRN OTHER 03/08/16 11:45 (Chapstick) 1 applic UNSCH PRN TOP 03/08/16 13:45 03/08/16 18:00 (SEROquel) 200 mg HS PO 03/09/16 21:00 (D50w (Vial) Inj) 25 ml UNSCH PRN IV PUSH 03/09/16 16:00 (Glucagon Inj) 1 mg UNSCH PRN OTHER 03/09/16 16:00 (Catapres) 0.1 mg Q6H PRN PO 03/09/16 17:00 A/P Problem List: (1) DM type 2 (diabetes mellitus, type 2) ICD Code: E11.9 Status: Chronic (2) HLD (hyperlipidemia) ICD Code: E78.5 Status: Acute Assessment and Plan Patient is 65-year-old female who came into the hospital after neighbor in house keeper states patient noted behavioral changes. She is now admitted to inpatient psychiatry unit for further evaluation. Consulted for medical management. Behavioral disturbances -managed by psychiatry team DM2 - patient is taking glyburide 5 mg twice a day at home with meals. Continue home meds. - Follow-up hemoglobin A1c - 6.9. diabetes is controlled. HLD - cont pravastatin - Follow-up lipid profile -----> Lipid profile is stable. LDL 93. HTN - upper review of records the patient has a trend of hypertension with systolic blood pressure anywhere from 140s to 250's being consistently elevated. The vital signs records trend back to March 2015. The patient states that she follows up with her primary care physician Dr. Da Silva and that she is not hypertensive and refuses to be started on antihypertensive medications. I will however recommend the patient to take lisinopril 20 mg by mouth daily. The patient clearly can and is in her right to refuse any treatment. If the patient's blood pressure is consistently below systolic blood pressure more than 150 then the patient can be discharged from the medical standpoint. However the if the patient's blood pressure consistently remains above 150 then she may be able to leave AGAINST MEDICAL ADVICE. Labs and been reviewed CBC unremarkable, BMP unremarkable, UA negative DVT Prop early ambulation Torin Romo MD Mar 09, 2016 17:36
[2016-03-09 19:40] VITALS: BP 170/83; PULSE 92; RESP 18; TEMP 97.9; O2SAT 99
[2016-03-09] MEDS ORDERED: QUEtiapine FUMARATE 200 MG TAB PO SCH (21:00)
[2016-03-10 05:27] VITALS: BP_SYST 101; BP_SYST 141; BP_DIAS 62; BP_DIAS 94; PULSE 105; PULSE 77; RESP 17; TEMP 97.5; TEMP 98.2; O2SAT 97; O2SAT 98
[2016-03-10] MEDS ORDERED: DEXTROSE 50% IN WATER 50 ML VIAL(D50) IV PUSH PRN (07:30)
[2016-03-10] MEDS ORDERED: GLUCAGON 1 MG/ML VIAL OTHER PRN (07:30)
[2016-03-10 07:49] VITALS: BP 146/71
[2016-03-10] MEDS: PRAVASTATIN SOD 20 MG TAB PO SCH (08:46)
[2016-03-10] MEDS: glyBURIDE 5 MG TAB PO SCH (08:46)
[2016-03-10] MEDS ORDERED: LISINOPRIL 20 MG TAB PO SCH (09:00)
[2016-03-10] MEDS ORDERED: INSULIN ASPART SUPPLEMENTAL SCALE SQ SCH (11:00)
--- NOTE | 2016-03-10 11:43 | HHI.DS ---
Psychiatry Discharge Summary Inpatient Psychiatric care?: Yes Advance Directive: Yes Mental Health AdvanceDirective: No Health Care Proxy: No Admission Admission Date Mar 06, 2016 at 00:16 Admission Diagnosis: (1) Bipolar affective disorder, current episode hypomanic ICD Code: F31.0 GAF Score: 45 Brief History Pt seen and discussed with RN. Chart reviewed. Pt is a 65 YOWF who presents to [facility] under a BA taken out in ED due to mica. Pt was disorganized and agiated in the ED and was given haldol and ativan due to agitation. Pt is noted to have pressured speech and tangential thought process. 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 She admits to poor sleep and states that she hasn't slept in 4 days prior to hospitalization but did sleep yesterday. She admits to being under a lot of stress and states that her house is disheveled and in disarray which is "not me at all". However, pt refuses treatment stating that she will doesn't think that she needs medication or hospitalization. Staff report that pt has been intrusive and paranoid, reporting that something is living under her bed. She denies SI/HI. Tobacco Use In Past 30 Days: No Tobacco Past 30 Days Alcohol Use: Monthly or Less Hospital Course Patient was started on supportive treatment. She persevered and saw the therapeutic activity on the floor. Her medication was adjusted. She claimed that she started to feel better but sometimes she talks fast because she is from [place] and does not feel that there is anything wrong. Patient denied any grandiose delusion at this time. Denied any suicidal ideation intentions or plan. Denied any active auditory or visual hallucinations. At that point arrangements were made for her to be discharged as patient was worried about her mother who is dying and wanted to take care of her. Results Blood Pressure 146 / 71 Vital Signs Date Time Temp Pulse Resp B/P Pulse Ox O2 Delivery O2 Flow Rate FiO2 03/10/16 07:49 146/71 03/10/16 05:27 97.5 105 17 98 Laboratory Tests Test 03/08/16 06:57 Random Glucose 116 MG/DL (74-106) Hemoglobin A1c 6.9 % (4.3-6.0) Laboratory Results Test 03/08/16 06:57 Hemoglobin A1c 6.9 % (4.3-6.0) Triglycerides Level 111 MG/DL (42-150) Cholesterol Level 174 MG/DL (120-200) LDL Cholesterol 93 MG/DL (0-99) HDL Cholesterol 59.2 MG/DL (40.0-60.0) Summary of Major Lab Results Nothing significant Summary of Procedures None Imaging None Pending results at discharge: No Medications # of Antipsychotic meds at D/C: 1 Appropriate >1 Antipsych meds?: 2 Approp Antipsych med options 1 - Minimum of three failed multiple trials of monotherapy. Discharge Discharge Date: Mar 10, 2016 Discharge Diagnosis: (1) Bipolar affective disorder, current episode hypomanic Diagnosis: Principal ICD Code: F31.0 Mental Status Exam at Disch Patient was alert reported 3 cooperative casually dressed. Her speech was clear spontaneous without any evidence of loose associations or flights of ideas at present time. Her mood was described as feeling fine and worried about mother's health and wanting to go home and take care of mother who is dying. Patient denied any suicidal and/or homicidal ideation intentions or plan. Denied any auditory or visual hallucinations. Willing to take the medication and follow-up as an outpatient Pt Condition on Discharge: Stable Discharge Disposition: Discharge Home Discharge Instructions Diet Instructions: As Tolerated, No Restrictions Activities you can perform: Regular-No Restrictions Scheduled Appointment: Bassem Krishnan Appointment Date: Mar 17, 2016 Appointment Time: 7:30 Discharge Time <= 30 minutes Discharge/Advance Care Plan Health Problems: (1) Mood disorder Goals to promote your health * To prevent worsening of your condition and complications * To maintain your health at the optimal level Directions to meet your goals Take your medications as prescribed Follow your dietary instruction Follow activity as directed Keep your appointments as scheduled Take your immunizations and boosters as scheduled If your symptoms worsen call your PCP, if no PCP go to Urgent Care Center or Emergency Room For 20/09 questions related to your inpatient stay or results of tests pending at discharge, please contact Dr. Onel Garcia at Smoking is Dangerous to Your Health. Avoid second hand smoking Onel Garcia MD Mar 10, 2016 11:43
[2016-03-10] MEDS ORDERED: QUET1TAB9 PO (11:46)
[2016-03-10] MEDS ORDERED: QUEtiapine FUMARATE 100 MG TAB PO SCH (21:00)
== END 2016-03-10 14:45 | disposition home or self-care (01) | DRG 885 ==
LOC: NEPE 15:13 → NEDA 03-06 00:16 → H260 03-06 01:20
PROVIDERS: ADMIT Psychiatry & Neurology Psychiatry; ATTEND Psychiatry & Neurology Psychiatry
DX: F31.0 Bipolar disorder, current episode hypomanic (principal); E11.9 Type 2 diabetes mellitus without complications; R00.0 Tachycardia, unspecified; E78.5 Hyperlipidemia, unspecified; R03.0 Elevated blood-pressure reading, without diagnosis of hypertension; Z79.84 Long term (current) use of oral hypoglycemic drugs
CPT/HCPCS: 80048; 80053; 80061; 80307; 80320; 81001; 82948; 83036; 84443; 85025; 93005; 96361; 96374; 96375; J1630; J2060; J7030; Q0163

== ENCOUNTER 2016-03-22 14:08 | Inpatient (IN) | payer MEDICARE, OTHER ==
[~2016-03-22] VITALS: Ht 154.9 cm; Wt 84.9 kg
[~2016-03-22 14:08] MED LIST changes: -GLIM2TAB PO; +GLYB5TAB3 PO; +HYDR-3516 PO; -HYDR-3533 PO; +LOVA20TA PO; +QUET1TAB9 PO
[2016-03-22 14:10] VITALS: BP 144/66; PULSE 89; RESP 15; TEMP 97.5; O2SAT 100
[2016-03-22 15:20] LABS: AUTOMATED NEUTROPHIL # 14.9 TH/MM3 (1.8-7.7); BASOPHIL % 0.3 % (0.0-2.0); EOSINOPHIL % 0.2 % (0.0-4.0); HEMATOCRIT 56.1 % (35.0-46.0); LYMPH % 1.7 % (9.0-44.0); LYMPHOCYTE # 0.3 TH/MM3 (1.0-4.8); MEAN CELL VOLUME 74.5 FL (80.0-100.0); MEAN CORPUSCULAR HEMOGLOBIN 23.1 PG (27.0-34.0); MONO % 2.5 % (0.0-8.0); NEUT % 95.3 % (16.0-70.0); PLATELET COUNT 224 TH/MM3 (150-450); RED BLOOD COUNT 7.53 MIL/MM3 (4.00-5.30); RED CELL DISTRIBUTION WIDTH 20.2 % (11.6-17.2); WHITE BLOOD COUNT 15.7 TH/MM3 (4.0-11.0)
[2016-03-22 15:23] LABS: HEMO FLAGS AUTO DIFF
--- NOTE | 2016-03-22 15:45 | PD ---
HPI Chief Complaint: Altered Mental Status Time Seen by Provider: 15:43 Travel History International Travel<30 days: No Contact w/Intl Traveler<30days: No Traveled to known affect area: No History of Present Illness HPI Patient comes in complaining of possible allergic reaction to her Seroquel. Patient states that she was taking 150 mg of Seroquel while she was in the hospital previously seemed to help her however since leaving the hospital her dose was increased to 200 mg and she feels like she is having a reaction to this. Patient denies any chest pain, shortness breath, headache, numbness or tingling anywhere. Patient states she's been bruising easily secondary to the Seroquel. Patient denies any homicidal or suicidal ideations. PFSH Past Medical History Cancer: No Cardiovascular Problems: No Diabetes: Yes Diminished Hearing: No Endocrine: No Gastrointestinal Disorders: No Genitourinary: No Hepatitis: No Hiatal Hernia: No Immune Disorder: No Musculoskeletal: No Neurologic: No Psychiatric: No Reproductive: No Respiratory: No Thyroid Disease: No Past Surgical History AICD: No Ear Surgery: No Eye Surgery: Yes (LEFT CATARACT EXTRACT., LEFT RETINAL REPAIR) Gynecologic Surgery: Yes (TAHBSO) Joint Replacement: No Neurologic Surgery: Yes (HEAD TRAUMA/ SCALP & CRANIAL REPAIR (MULTI SX'S)) Oral Surgery: No Pacemaker: No Other Surgery: Yes Social History Alcohol Use: Yes (rare) Tobacco Use: No Substance Use: No Allergies-Medications (Allergen,Severity, Reaction): Coded Allergies: Penicillin (Unverified Allergy, Severe, CONVULSIONS, 08/28/15) Darvon (Unverified Adverse Reaction, Severe, VOMITING, 08/28/15) Reported Meds & Prescriptions Reported Meds & Active Scripts Active Quetiapine (Quetiapine Fumarate) 200 Mg Tab 200 Mg PO HS 14 Days Reported Hydrocodone-Acetaminophen 5-325 mg Tab 1 Tab PO Q4H PRN Lovastatin 20 Mg Tab 20 Mg PO DAILY Glyburide 5 Mg Tab 10 Mg PO BID Take with meals at the same time each day Review of Systems Except as stated in HPI: all other systems reviewed are Neg Physical Exam Narrative GENERAL: Well-developed, overly nourished, in no acute distress, and non-ill appearing. SKIN: Warm and dry. HEAD: Atraumatic. Normocephalic. EYES: Pupils equal and round. EOMI. No scleral icterus. No injection or drainage. ENT: No nasal bleeding or discharge. Mucous membranes pink and moist. NECK: Trachea midline. Supple. No nuclear rigidity. CARDIOVASCULAR: Regular rate and rhythm. No murmur appreciated. RESPIRATORY: No accessory muscle use. No respiratory distress. Clear to auscultation. Breath sounds equal bilaterally. MUSCULOSKELETAL: No obvious deformities. No clubbing. No cyanosis. No edema. Full range of motion. NEUROLOGICAL: Awake and alert. No obvious cranial nerve deficits. Motor grossly within normal limits. Normal speech. PSYCHIATRIC: Appropriate mood and affect. Data Data Last Documented VS Vital Signs Date Time Temp Pulse Resp B/P Pulse Ox O2 Delivery O2 Flow Rate FiO2 03/22/16 16:50 99 Room Air 03/22/16 14:10 97.5 89 15 144/66 Orders Iv Access Insert/Monitor (03/22/16 14:23) Complete Blood Count With Diff (03/22/16 14:23) Basic Metabolic Panel (Bmp) (03/22/16 14:23) Urinalysis - C+S If Indicated (03/22/16 14:23) Drug Screen, Random Urine (03/22/16 15:22) Salicylates (Aspirin) (03/22/16 15:22) Psych Screen (03/22/16 15:22) Electrocardiogram (03/22/16 ) Ct Brain W/O Iv Contrast(Rout) (03/22/16 ) Ammonia (03/22/16 16:00) Creatine Kinase (Cpk) (03/22/16 16:00) Troponin I (03/22/16 16:00) Chest, Single Ap (03/22/16 16:00) Ecg Monitoring (03/22/16 16:00) Oximetry (03/22/16 16:00) Sodium Chlorid 0.9% 500 Ml Inj (Ns 500 M (03/22/16 16:30) Tylenol (Acetaminophen) (03/22/16 16:00) Alcohol (Ethanol) (03/22/16 16:00) Hepatic Functional Panel (03/22/16 16:00) Urine Culture (03/22/16 16:50) Sulfamet-Trimeth Ds 800-160 Mg (Bactrim (03/22/16 17:30) CKMB (03/22/16 16:05) CKMB% (03/22/16 16:05) Sodium Chlor 0.9% 1000 Ml Inj (Ns 1000 M (03/22/16 18:15) Lactic Acid Sepsis Protocol (03/22/16 18:22) Influenzae A/B Antigen (03/22/16 18:22) Blood Culture (03/22/16 18:22) Admit Order (Ed Use Only) (03/22/16 18:23) Diet Heart Healthy (03/22/16 Dinner) Vital Signs (Adult) BERNIE.Q4H (03/22/16 18:20) Sodium Chlor 0.9% 1000 Ml Inj (Ns 1000 M (03/22/16 18:30) Complete Blood Count With Diff (03/23/16 06:00) Basic Metabolic Panel (Bmp) (03/23/16 06:00) ^ Blood Glucose Goal (Criteria (03/22/16 18:20) ^ Hypoglycemia 51 - 69 Mg/Dl (03/22/16 18:20) ^ Hypoglycemia 50 Mg/Dl Or < (03/22/16 18:20) ^ Notify Dr: Other (03/22/16 18:20) Dextrose 50% In Kaela (Vial) Inj (D50w (Vi (03/22/16 18:30) Glucagon Inj (Glucagon Inj) (03/22/16 18:30) Low Novolog Scale (03/22/16 21:00) Ondansetron Inj (Zofran Inj) (03/22/16 18:30) Acetaminophen (Tylenol) (03/22/16 18:30) Labs Laboratory Tests Test 03/22/16 03/22/16 03/22/16 03/22/16 15:00 16:05 16:50 17:00 White Blood Count 15.7 TH/MM3 Red Blood Count 7.53 MIL/MM3 Hemoglobin 17.4 GM/DL Hematocrit 56.1 % Mean Corpuscular Volume 74.5 FL Mean Corpuscular Hemoglobin 23.1 PG Mean Corpuscular Hemoglobin 31.0 % Concent Red Cell Distribution Width 20.2 % Platelet Count 224 TH/MM3 Mean Platelet Volume 8.8 FL Neutrophils (%) (Auto) 95.3 % Lymphocytes (%) (Auto) 1.7 % Monocytes (%) (Auto) 2.5 % Eosinophils (%) (Auto) 0.2 % Basophils (%) (Auto) 0.3 % Neutrophils # (Auto) 14.9 TH/MM3 Lymphocytes # (Auto) 0.3 TH/MM3 Monocytes # (Auto) 0.4 TH/MM3 Eosinophils # (Auto) 0.0 TH/MM3 Basophils # (Auto) 0.0 TH/MM3 CBC Comment AUTO DIFF Differential Total Cells 100 Counted Neutrophils % (Manual) 85 % Band Neutrophils % 12 % Lymphocytes % 1 % Monocytes % 2 % Neutrophils # (Manual) 15.2 TH/MM3 Differential Comment FINAL DIFF MANUAL Platelet Estimate NORMAL Platelet Morphology Comment NORMAL Sodium Level 137 MEQ/L Potassium Level 5.5 MEQ/L Chloride Level 101 MEQ/L Carbon Dioxide Level 31.9 MEQ/L Anion Gap 4 MEQ/L Blood Urea Nitrogen 30 MG/DL Creatinine 1.27 MG/DL Estimat Glomerular Filtration 42 ML/MIN Rate Random Glucose 168 MG/DL Calcium Level 9.2 MG/DL Total Bilirubin 1.0 MG/DL Direct Bilirubin 0.1 MG/DL Indirect Bilirubin 0.9 MG/DL Aspartate Amino Transf 109 U/L (AST/SGOT) Alanine Aminotransferase 89 U/L (ALT/SGPT) Alkaline Phosphatase 67 U/L Total Creatine Kinase 2113 U/L Creatine Kinase MB 19.9 NG/ML Creatine Kinase MB % 0.9 % Troponin I 0.18 NG/ML Total Protein 6.6 GM/DL Albumin 3.3 GM/DL Salicylates Level LESS THAN 1.7 MG/DL Acetaminophen Level LESS THAN 2.0 MCG/ML Ethyl Alcohol Level LESS THAN 3 MG/DL Urine Color YELLOW Urine Turbidity CLEAR Urine pH 6.5 Urine Specific [place] 1.015 Urine Protein 100 mg/dL Urine Glucose (UA) NEG mg/dL Urine Ketones NEG mg/dL Urine Occult Blood MOD Urine Nitrite NEG Urine Bilirubin NEG Urine Urobilinogen LESS THAN 2.0 MG/DL Urine Leukocyte Esterase NEG Urine RBC 79 /hpf Urine WBC 9 /hpf Urine Squamous Epithelial <1 /hpf Cells Microscopic Urinalysis Comment CULTURE INDICATED Urine Opiates Screen NEG Urine Barbiturates Screen NEG Urine Amphetamines Screen NEG Urine Benzodiazepines Screen NEG Urine Cocaine Screen NEG Urine Cannabinoids Screen NEG MDM Medical Decision Making Medical Screen Exam Complete: Yes Emergency Medical Condition: Yes Interpretation(s) EKG reviewed by Dr. Lacey shows normal sinus rhythm with ventricular rate of 82. No STEMI. Differential Diagnosis Bipolar, alcohol status, acute psychosis, pneumonia, CVA, UTI, other Narrative Course Patient was seen and examined. Initial laboratory and radiology studies were obtained and reviewed. Discussed patient with Dr. Scott, who saw and evaluated the patient and agreement with plan of care and disposition. Dr. Scott spoke with Dr. Owens who is agreeable to admit the patient. Patient was agreeable for admission. All questions were answered. Diagnosis Primary Impression: Sepsis Qualified Code: A41.9 - Sepsis, due to unspecified organism Additional Impression: Rhabdomyolysis Qualified Code: M62.82 - Non-traumatic rhabdomyolysis Admitting Information Admitting Physician Requests: Admit Ramesh Aparicio Mar 22, 2016 15:45
[2016-03-22 15:46] LABS: BICARBONATE 31.9 MEQ/L (21.0-32.0); POTASSIUM 5.5 MEQ/L (3.5-5.1)
[2016-03-22 15:56] LABS: BANDS 12 % (0-6); NEUTROPHIL # MANUAL DIFF 15.2 TH/MM3 (1.8-7.7); PLATELET ESTIMATE SMEAR NORMAL (NORMAL); PLATELET MORPHOLOGY NORMAL (NORMAL); POLYS (SEG NEUTROPHILS) 85 % (16-70); SCAN/DIFF FINAL DIFF MANUAL; WBC DIFF SAMPLE 100
--- NOTE | 2016-03-22 16:13 | RADRPT ---
EXAM DATE/TIME: 03/22/2016 15:48 [facility] COMPARISON: No previous studies available for comparison. INDICATIONS : Altered mental status. RADIATION DOSE: 56.35 CTDIvol (mGy) MEDICAL HISTORY : Traumatic brain injury. SURGICAL HISTORY : Craniotomy. ENCOUNTER: Initial ACUITY: 1 day PAIN SCALE: 0/10 LOCATION: cranial TECHNIQUE: Multiple contiguous axial images were obtained of the head. Using automated exposure control and adj ustment of the mA and/or kV according to patient size, radiation dose was kept as low as reasonably a chievable to obtain optimal diagnostic quality images. FINDINGS: CEREBRUM: The ventricles are normal for age. No evidence of midline shift, mass lesion, hemorrhage or acute in farction. No extra-axial fluid collections are seen. POSTERIOR FOSSA: The cerebellum and brainstem are intact. The 4th ventricle is midline. The cerebellopontine angle i s unremarkable. EXTRACRANIAL: The visualized portion of the orbits is intact. SKULL: The calvaria is intact. No evidence of skull fracture. CONCLUSION: Negative examination Sai Estrada MD on March 22, 2016 at 16:11 Board Certified Radiologist. This report was verified electronically.
--- NOTE | 2016-03-22 16:15 | RADRPT ---
EXAM DATE/TIME: 03/22/2016 16:12 [facility] COMPARISON: No previous studies available for comparison. INDICATIONS : Short of breath. MEDICAL HISTORY : None. SURGICAL HISTORY : None. ENCOUNTER: Initial ACUITY: 1 day PAIN SCORE: Non-responsive. LOCATION: Bilateral chest FINDINGS: A single view of the chest demonstrates the lungs to be symmetrically aerated without evidence of mas s, infiltrate or effusion. The cardiomediastinal contours are unremarkable with calcification in the aortic knob. Osseous structures are intact. CONCLUSION: No acute disease. Sai Estrada MD on March 22, 2016 at 16:13 Board Certified Radiologist. This report was verified electronically.
[2016-03-22] MEDS ORDERED: SODIUM CHLORID 0.9% 500 ML INJ 500 ML IV ONE (16:30)
[2016-03-22 16:50] VITALS: O2SAT 99
[2016-03-22 17:19] LABS: BLOOD, URINE MOD (NEG); COMMENT (UR) CULTURE INDICATED; CULTURE IF INDICATED CULTURE INDICATED; GLUCOSE,URINE NEG (NEG); KETONE, URINE NEG (NEG); NITRITE,URINE NEG (NEG); PH, URINE 6.5 (5.0-8.5); SQUAMOUS EPITHELIAL CELL URINE <1 /hpf (0-5); URINE COLOR YELLOW (YELLW/STRAW)
[2016-03-22] MEDS ORDERED: BACT800T5 PO (17:22)
[2016-03-22] MEDS ORDERED: SULFAMETHOXAZOLE-TRIMETHOPRIM DS 800-160 MG TAB PO ONE (17:30)
[2016-03-22 17:38] LABS: ACETAMINOPHEN LESS THAN 2.0 MCG/ML (10.0-30.0); ALKALINE PHOSPHATASE 67 U/L (45-117); ALT (GPT) 89 U/L (10-53); AST (GOT) 109 U/L (15-37); INDIRECT BILIRUBIN 0.9 MG/DL (0.0-0.8)
[2016-03-22 17:41] LABS: CREATINE KINASE 2113 U/L (26-192)
[2016-03-22 17:53] LABS: CKMB 19.9 NG/ML (0.5-3.6)
[2016-03-22 17:56] LABS: AMPHETAMINE, URINE NEG (NEG); BARBITURATES, URINE NEG (NEG); COCAINE, URINE NEG (NEG)
[2016-03-22] MEDS ORDERED: SODIUM CHLOR 0.9% 1000 ML INJ 1,000 ML IV ONE ×2 (18:15→18:30)
[2016-03-22] MEDS ORDERED: VANCOMYCIN INJ 1,000 MG in SODIUM CHLOR 0.9% 250 ML INJ 250 ML IV STA (18:25)
[2016-03-22] MEDS ORDERED: AZTREONAM INJ 2,000 MG in SODIUM CHLORIDE 0.9% INJ 100 ML IV STA (18:25)
[2016-03-22] MEDS ORDERED: ONDANSETRON HCL 4 MG/2 ML VIAL IV PUSH PRN (18:30)
[2016-03-22] MEDS ORDERED: GLUCAGON 1 MG/ML VIAL OTHER PRN (18:30)
[2016-03-22] MEDS ORDERED: ACETAMINOPHEN 325 MG TAB PO PRN (18:30)
[2016-03-22] MEDS ORDERED: DEXTROSE 50% IN WATER 50 ML VIAL(D50) IV PUSH PRN (18:30)
[2016-03-22 19:18] VITALS: BP 135/71; PULSE 75; RESP 16; O2SAT 100
[2016-03-22] MEDS ORDERED: cloNIDine HCL 0.1 MG TAB PO PRN (19:30)
--- NOTE | 2016-03-22 19:38 | HHI.HP ---
[facility] Bjorn Herrera MD Admission Diagnosis Sepsis, altered mental status Diagnoses: Chief Complaint: Confusion Travel History International Travel<30 Days: No Contact w/Intl Traveler <30 Da: No Traveled to Known Affected Are: No History of Present Illness The patient is a 66-year-old female with a past medical history of diabetes who was recently admitted to the hospital for bipolar disorder who is presenting to the hospital with confusion. The patient says that she was recently in the hospital for several days and she was told she had bipolar disorder. She said she was discharged on high-dose of Seroquel and she thinks she is having a reaction to it. The patient does not recall the circumstances surrounding her discharge and her presentation to the hospital today. She is very confused about what she has been doing over the past couple of weeks. She says that her mother was on hospice and she just recently . She said she has been speaking with an litigation attorney associate about her situation. She said that she doesn't believe she should've been on the Seroquel at such a high dose. She says her feet do not appear normal. She has not been taking the Seroquel at home. She has been taking her diabetes medication. Her family did arrive in the emergency department and are not sure what has happened to the patient over the past couple of weeks. They did hear that she fell and tripped into a ditch and that is where she got some scars on her feet from. The patient was paranoid about one of her family members and did not want her present at the bedside. The patient said that she did have something she wanted to talk to the doctor about but she said she would like to talk about it later when she is in her room. Review of Systems ROS Limitations: Psychotic, Poor Historian Constitutional: COMPLAINS OF: Change in appetite Integumentary: COMPLAINS OF: Abnormal pigmentation, Nail changes Psychiatric: COMPLAINS OF: Confusion Past Family Social History Past Medical History Bipolar disorder Diabetes Hypertension Displaced right shoulder fracture Allergies: Coded Allergies: Penicillin (Unverified Allergy, Severe, CONVULSIONS, 03/22/16) Darvon (Unverified Adverse Reaction, Severe, VOMITING, 03/22/16) Active Ordered Medications Current Medications Medications (Trade) Dose Ordered Sig/Evita Route Start Time Stop Time Status Last Admin (NS 1000 ml Inj) 1,000 ml @ 75 mls/hr [id number] ONCE IV 03/22/16 18:30 03/23/16 07:49 (D50w (Vial) Inj) 25 ml UNSCH PRN IV PUSH 03/22/16 18:30 (Glucagon Inj) 1 mg UNSCH PRN OTHER 03/22/16 18:30 (Zofran Inj) 4 mg Q8HR PRN IV PUSH 03/22/16 18:30 Acetaminophen 650 mg 650 mg Q4H PRN PO 03/22/16 18:30 (NS 1000 ml Inj) 1,000 ml @ 150 mls/hr Q6H40M IV 03/22/16 19:30 UNV (Catapres) 0.1 mg Q6H PRN PO 03/22/16 19:30 UNV Family History Diabetes CVA Social History The patient does not smoke. She drinks alcohol occasionally. She denies illicit drug use. Physical Exam Vital Signs Vital Signs Date Time Temp Pulse Resp B/P Pulse Ox O2 Delivery O2 Flow Rate FiO2 03/22/16 19:18 75 16 135/71 100 Room Air 03/22/16 16:50 99 Room Air 03/22/16 14:10 97.5 89 15 144/66 100 Physical Exam GENERAL: Well-developed, no apparent distress. SKIN: Warm and dry. Bug bites on lower extremities. HEAD: Atraumatic. Normocephalic. EYES: Pupils equal and round. EOMI. No scleral icterus. No injection or drainage. ENT: No nasal bleeding or discharge. Mucous membranes pink and moist. NECK: Trachea midline. Supple. No nuclear rigidity. CARDIOVASCULAR: Regular rate and rhythm. No murmur appreciated. RESPIRATORY: No accessory muscle use. No respiratory distress. Clear to auscultation. Breath sounds equal bilaterally. MUSCULOSKELETAL: No obvious deformities. No clubbing. No cyanosis. No edema. Full range of motion. NEUROLOGICAL: Awake and alert. No obvious cranial nerve deficits. Motor grossly within normal limits. Normal speech. PSYCHIATRIC: Confused, paranoid. Laboratory Laboratory Tests Test 03/22/16 03/22/16 03/22/1603/22/17 15:00 16:05 16:50 17:00 White Blood Count 15.7 Red Blood Count 7.53 Hemoglobin 17.4 Hematocrit 56.1 Mean Corpuscular Volume 74.5 Mean Corpuscular Hemoglobin 23.1 Mean Corpuscular Hemoglobin 31.0 Concent Red Cell Distribution Width 20.2 Platelet Count 224 Mean Platelet Volume 8.8 Neutrophils (%) (Auto) 95.3 Lymphocytes (%) (Auto) 1.7 Monocytes (%) (Auto) 2.5 Eosinophils (%) (Auto) 0.2 Basophils (%) (Auto) 0.3 Neutrophils # (Auto) 14.9 Lymphocytes # (Auto) 0.3 Monocytes # (Auto) 0.4 Eosinophils # (Auto) 0.0 Basophils # (Auto) 0.0 CBC Comment AUTO DIFF Differential Total Cells 100 Counted Neutrophils % (Manual) 85 Band Neutrophils % 12 Lymphocytes % 1 Monocytes % 2 Neutrophils # (Manual) 15.2 Differential Comment FINAL DIFF MANUAL Platelet Estimate NORMAL Platelet Morphology Comment NORMAL Sodium Level 137 Potassium Level 5.5 Chloride Level 101 Carbon Dioxide Level 31.9 Anion Gap 4 Blood Urea Nitrogen 30 Creatinine 1.27 Estimat Glomerular Filtration 42 Rate Random Glucose 168 Calcium Level 9.2 Total Bilirubin 1.0 Direct Bilirubin 0.1 Indirect Bilirubin 0.9 Aspartate Amino Transf 109 (AST/SGOT) Alanine Aminotransferase 89 (ALT/SGPT) Alkaline Phosphatase 67 Total Creatine Kinase 2113 Creatine Kinase MB 19.9 Creatine Kinase MB % 0.9 Troponin I 0.18 Total Protein 6.6 Albumin 3.3 Salicylates Level LESS THAN 1.7 Acetaminophen Level LESS THAN 2.0 Ethyl Alcohol Level LESS THAN 3 Urine Color YELLOW Urine Turbidity CLEAR Urine pH 6.5 Urine Specific [place] 1.015 Urine Protein 100 Urine Glucose (UA) NEG Urine Ketones NEG Urine Occult Blood MOD Urine Nitrite NEG Urine Bilirubin NEG Urine Urobilinogen LESS THAN 2.0 Urine Leukocyte Esterase NEG Urine RBC 79 Urine WBC 9 Urine Squamous Epithelial <1 Cells Microscopic Urinalysis Comment CULTURE INDICATED Urine Opiates Screen NEG Urine Barbiturates Screen NEG Urine Amphetamines Screen NEG Urine Benzodiazepines Screen NEG Urine Cocaine Screen NEG Urine Cannabinoids Screen NEG Test 03/22/16 18:45 Lactic Acid Level 0.8 Date/Time Procedure Status Source Growth 03/22/16 18:50 Aerobic Blood Culture Received Blood Peripheral Pending 03/22/16 18:50 Anaerobic Blood Culture Received Blood Peripheral Pending 03/22/16 18:45 Influenza Types A,B Antigen (NIKKY) - Final Complete Nasal Aspirate NEGATIVE FOR FLU A AND B ANTIGEN.... 03/22/16 16:50 Urine Culture Worksheet Urine Clean Catch Pending Result Diagram: 03/22/16 1500 03/22/16 1500 Imaging Last Impressions Chest X-Ray 03/22/16 1600 Signed Impressions: Service Date/Time: Tuesday, March 22, 2016 16:12 - CONCLUSION: No acute disease. Sai Estrada MD Head CT 03/22/16 0000 Signed Impressions: Service Date/Time: Tuesday, March 22, 2016 15:48 - CONCLUSION: Negative examination Sai Estrada MD Assessment and Plan Assessment and Plan Rhabdomyolysis/ acute renal failure The patient appears dehydrated and has not been taking care of herself since discharge from psychiatry. Her creatinine is elevated and so was her CPK level. Her labs indicate hemoconcentration. Lactic acid level was not elevated. - IV fluids. - Follow BMP and CPK levels. - Avoid nephrotoxic agents. - Encourage by mouth intake. - PT/OT/ case management consult. Elevated troponin EKG with normal sinus rhythm and no ischemic changes. Initial troponin 0.18. Likely secondary to demand ischemia from rhabdomyolysis. - Follow troponins. - Telemetry. - EKG in a.m. - Treat rhabdo as above. Elevated LFTs May be secondary to medications or rhabdo. - IV fluids. - Trend LFTs. - Hold statin. - Check liver ultrasound and hepatitis profile if not improved in a.m. UTI The patient presents with leukocytosis and left shift. UA is indicative of an infection. Chest x-ray is unremarkable. - Follow urine culture and blood cultures. - Continue Cipro IV. - IV fluids. Acute psychosis The patient has been confused about what she has been doing for the past couple of weeks. She was recently admitted to the psych unit for bipolar disorder. She was started on circumflex: The patient says she has not been taking that medication and believes she is having a bad reaction to the Seroquel. CT of the head unremarkable. Tox screen negative. - Psych consult requested. - Hold Seroquel. Diabetes The patient is on glyburide as an outpatient. - Hold glyburide. - Insulin sliding scale. PPx: Heparin. Discussed Condition With Pt, pt's family, nurse, Dr. Yin Physician Certification 2 Midnight Certification Type: Admission for Inpatient Services Order for Inpatient Services The services are ordered in accordance with Medicare regulations or non- Medicare payer requirements, as applicable. In the case of services not specified as inpatient-only, they are appropriately provided as inpatient services in accordance with the 2-midnight benchmark. Estimated LOS (days): 2 days is the estimated time the patient will need to remain in the hospital, assuming treatment plan goals are met and no additional complications. Post-Hospital Plan: Not yet determined Jalen Barrios DO Mar 22, 2016 19:38
[2016-03-22] MEDS: INSULIN ASPART SUPPLEMENTAL SCALE SQ SCH (21:00)
[2016-03-22] MEDS: SODIUM CHLOR 0.9% 1000 ML INJ 1,000 ML IV SCH (21:01)
[2016-03-22 23:37] VITALS: BP 135/79; PULSE 84; RESP 16; O2SAT 99
[2016-03-23] VITALS (8 sets, daily range): BP systolic 119–146; BP diastolic 55–74; PULSE 73–95; RESP 16–19; TEMP 96.2–98.4; O2SAT 99–100
[2016-03-23] MEDS: HEPARIN SODIUM - SQ 10,000 UNITS/ML VIAL SQ SCH ×4 (00:02→20:50)
[2016-03-23] MEDS: CIPROFLOXACIN 400 MG PREMIX 200 ML IV SCH ×3 (01:05→23:14)
[2016-03-23] MEDS: SODIUM CHLOR 0.9% 1000 ML INJ 1,000 ML IV SCH ×4 (01:06→23:15)
[2016-03-23] MEDS: INSULIN ASPART SUPPLEMENTAL SCALE SQ SCH ×4 (05:59→20:37)
--- NOTE | 2016-03-23 12:06 | PD.CONS ---
Provisional Diagnosis Admission Date Mar 22, 2016 at 18:26 [place] I. Bipolar disorder type I, most recent episode manic, with psychotic features vs schizoaffective disorder, bipolar type [place] II. Deferred History of Present Illness Service Psychiatry Consult Requested By Primary Care Physician Bjorn Herrera MD HPI The patient is a 66-year-old woman, , domiciled alone in [place], retired, with past psychiatric history of bipolar disorder, 1 recent hospitalization here at [facility], discharge on March 06, 2016, no previous suicidal attempts, apparently noncompliance with psychiatric medications, medical history of diabetes, who is presenting to the hospital with confusion. As per ER note "The patient says that she was recently in the hospital for several days and she was told she had bipolar disorder. She said she was discharged on high-dose of Seroquel and she thinks she is having a reaction to it. The patient does not recall the circumstances surrounding her discharge and her presentation to the hospital today. She is very confused about what she has been doing over the past couple of weeks. She says that her mother was on hospice and she just recently . She said she has been speaking with an prosecuting attorney about her situation. She said that she doesn't believe she should've been on the Seroquel at such a high dose. She says her feet do not appear normal. She has not been taking the Seroquel at home". Patient was admitted in medicine due to sepsis and acute kidney injury. Toxicology is negative. Consulted to psychiatry due to paranoia and delusions. Patient was seen and evaluated at bedside in her room in the medical floor. Collateral information from the nurse in charge was obtained, in which the nurse explains that the patient has been very paranoid towards staff members, disruptive in the in her room, very hyperactive, she refused to eat stating that the food was poisoned, she signed some admitting documentation and immediately thought that this documentation was documentation to send her to psychiatric diaz and give her medications a continue her will. On psychiatric evaluation patient was found sitting in her bed, she was basically cooperative, but very talkative, with marked pressured speech, at times agitated, but redirectable. Patient says that she will spaeak witha psychiatrist "just a few senate document but my director of enterprise applications where you guarantee you send me the 2600 units". Patient endorses happy mood, says that she is being very energetic, hyperactive , sleeping less than 2 hours everyday, last night did not sleep at all. She she says that she has been focus in different activities "I want to go back to [place] to do some work with my mother", minutes later she said that her mother recently. She says that she has things to do in [place] "where I have my money, millions of dollars, ivette I made with mine two PHDs and 2 master degrees" . She says that the reason to be so hyperactive and talking too fast is because she is anxious " about my 7 stressors", but she was unable to elaborate about this is stressors. During the evaluation the patient becomes tangential and disorganized in many occasions needing frequent redirection. She denies depressive symptoms, she denies suicidal or homicidal ideation, she denies visual and auditory hallucinations, but prominent paranoia, grandiosity or delusion, pressured speech, self inflated self esteem, increased psychomotor activity, goal-directed activities and lack of sleep are present during this evaluation. Patient is fully oriented 3, she doesn't seem to have any gross cognitive impairment. She denies the use of alcohol or any illicit drugs. Review of Systems Constitutional: DENIES: Diaphoretic episodes, Fatigue, Fever, Weight gain, Weight loss, Chills, Dizziness, Change in appetite, Night Sweats Endocrine: DENIES: Abnorml menstrual pattern, Heat/cold intolerance, Polydipsia , Polyuria, Polyphagia Eyes: DENIES: Blurred vision, Diplopia, Eye inflammation, Eye pain, Vision loss , Photosensitivity, Double Vision Ears, nose, mouth, throat: DENIES: Tinnitus, Hearing loss, Vertigo, Nasal discharge, Oral lesions, Throat pain, Hoarseness, Ear Pain, Running Nose, Epistaxis, Sinus Pain, Toothache, Odynophagia Respiratory: DENIES: Apneas, Cough, Snoring, Wheezing, Hemoptysis, Sputum production, Shortness of breath Cardiovascular: DENIES: Chest pain, Palpitations, Syncope, Dyspnea on Exertion , PND, Lower Extremity Edema, Orthopnea, Claudication Gastrointestinal: DENIES: Abdominal pain, Black stools, Bloody stools, Constipation, Diarrhea, Nausea, Vomiting, Difficulty Swallowing, Anorexia Genitourinary: DENIES: Abnormal vaginal bleeding, Dysmenorrhea, Dyspareunia, Sexual dysfunction, Urinary frequency, Urinary incontinence, Urgency, Hematuria , Dysuria, Nocturia, Vaginal discharge Integumentary: DENIES: Abnormal pigmentation, Pruritus, Rash, Nail changes, Breast masses, Breast skin changes, Nipple discharge Hematologic/lymphatic: DENIES: Bruising, Lymphadenopathy Immunologic/allergic: DENIES: Eczema, Urticaria Neurologic: DENIES: Abnormal gait, Headache, Localized weakness, Paresthesias, Seizures, Speech Problems, Tremor, Poor Balance Psychiatric: COMPLAINS OF: Mood changes, Agitation, Delusions Past Family Social History Coded Allergies: Penicillin (Unverified Allergy, Severe, CONVULSIONS, 03/22/16) Darvon (Unverified Adverse Reaction, Severe, VOMITING, 03/22/16) Reported Medications Lovastatin 20 Mg Tab20 Mg PO DAILY #30 TAB Ref 0 03/05/16 Glyburide 5 Mg Tab10 Mg PO BID #60 TAB Ref 0 Take with meals at the same time each day 03/05/16 Discontinued Reported Medications Hydrocodone-Acetaminophen 5-325 mg Tab1 Tab PO Q4H PRN (PAIN) Ref 0 03/05/16 Discontinued Scripts Quetiapine 200 Mg Bim202 Mg PO HS 14 Days Ref 1 Prov:Onel Garcia MD 03/10/16 Current Medications Medications (Trade) Dose Ordered Sig/Evita Route Start Time Stop Time Status Last Admin (D50w (Vial) Inj) 25 ml UNSCH PRN IV PUSH 03/22/16 18:30 (Glucagon Inj) 1 mg UNSCH PRN OTHER 03/22/16 18:30 (Zofran Inj) 4 mg Q8HR PRN IV PUSH 03/22/16 18:30 Acetaminophen 650 mg 650 mg Q4H PRN PO 03/22/16 18:30 (NS 1000 ml Inj) 1,000 ml @ 150 mls/hr Q6H40M IV 03/22/16 19:30 03/23/16 01:06 Clonidine 0.1 mg 0.1 mg Q6H PRN PO 03/22/16 19:30 (Cipro 400 Mg Premix) 200 ml @ 200 mls/hr Q12H IV 03/23/16 00:00 03/23/16 01:05 (Heparin Inj) 5,000 units Q8HR SQ 03/22/16 22:00 03/23/16 00:02 Family History She denies Social History Patient was born and raised in [place], she lives in [place] alone in an apartment, she has been living in for the for about 3 years, before that she was living in [place], she is , she has 2 adult kids, retired. Physical Exam Vital Signs Vital Signs Date Time Temp Pulse Resp B/P Pulse Ox O2 Delivery O2 Flow Rate FiO2 03/23/16 08:00 97.4 95 19 99 03/23/16 07:21 Room Air Mental Status Examination Appearance Overweight woman, red tinted hair, age appearing, she is cooperative, but irritable, talkative, psychomotor agitated. Speech: Pressured, Rapid Orientation: x3 Memory: Unremarkable Thought Process: Goal Directed, Loose Association, Tangential Thought Content: Paranoid, Obsessions, Other (grandeur delusion) Hallucination Type: None Attention and Concentration: Abnormal Suicidal Ideation: No Previous Suicide Attempts: No Homicidal Ideation: No Previous Homicide Attempts: No Insight: Poor Affect: Irritable Mood: Anxious, Manic Motor Activity: Abnormal gait-specify Assessment & Plan Problem List: (1) Bipolar disorder with psychotic features Assessment & Plan: The patient is a 66-year-old woman with past psychiatric history of bipolar disorder, 1 recent psychiatric hospitalization here at [facility], discharge on March 06, 2016, no previous suicidal attempts, apparently noncompliance with psychiatric medications, medical history of diabetes, who is presenting to the hospital with confusion. Admitted to the medical floor due to elevated WBCs, suspected sepsis and JOVANNY. Consulted to psychiatry due to delusions and paranoia. On psychiatric evaluation I found a patient who was recently discharged in March 06 from the 2600 unit, but admits that she hasn't been taking her psychiatric medications "I need them, they're making minimal crazy", but now presents acutely manic, with prominent pressured speech, psychomotor agitation, paranoia, delusions of grandiosity, poor sleep, goal-directed activities, tangential and disorganized thought process. She denies suicidal or homicidal ideation, she denies visual and auditory hallucinations. She is fully oriented 3, no gross cognitive impairment observed. Patient needs psychiatric admission for stabilization of her manic symptoms. She meets criteria to be transfer to the med/psych unit once a bed is available. Collateral information from family members to complete psychiatric assessment is still needed. Extensive psychoeducation, motivation and support provided. Will start Depakote 250 mg twice a day for mood stabilization and olanzapine 2.5 mg at bedtime to help with psychosis and also mood stabilization. Consul appreciated. ICD Code: F31.9 Assessment & Plan Estimated LOS: Car Hernandez MD Mar 23, 2016 12:06
[2016-03-23] MEDS: DIVALPROEX SODIUM E.R. 250 MG TAB PO SCH ×2 (14:42→20:45)
--- NOTE | 2016-03-23 14:50 | HHI.PR ---
Subjective Remarks Patient seen this morning around 11 AM. As per nursing, patient is refusing her labs. Patient initially refuses labs to me, however after long discussion subsequently agrees. On exam Patient has very tangential speech, with delusions of police wanting to get her "codes", and believes that I am working with the police to try and get her "codes". Per afternoon report, she has subsequently refused labs. As she is not in her right mind, and certainly not in any condition to be making life or medical decisions, I have ordered for restraints so that labs can be drawn and fluids given.. Objective Vital Signs Date Time Temp Pulse Resp B/P Pulse Ox O2 Delivery O2 Flow Rate FiO2 03/23/16 12:00 98.4 77 16 142/65 100 03/23/16 08:00 97.4 95 19 99 03/23/16 07:21 Room Air 03/23/16 03:44 97.6 90 19 119/74 99 03/23/16 01:15 73 03/23/16 00:30 96.2 82 17 139/60 100 03/22/16 23:37 84 16 135/79 99 Room Air 03/22/16 20:00 Room Air 03/22/16 19:18 75 16 135/71 100 Room Air 03/22/16 16:50 99 Room Air I/O 03/22/16 03/22/16 03/22/16 03/23/16 03/23/16 03/23/16 07:00 15:00 23:00 07:00 15:00 23:00 Intake Total 1446 ml 525 ml Balance 1446 ml 525 ml Intake Oral 240 ml 525 ml IV Total 1206 ml # Voids 2 # Bowel Movements 1 Result Diagram: 03/22/16 1500 03/22/16 1500 Objective Remarks GENERAL: Patient sitting up in chair. Appears comfortable. She is alert and oriented 3. Very distractible and tangential speech. SKIN: Warm and dry. HEAD: Normocephalic. EYES: No scleral icterus. No injection or drainage. NECK: Supple, trachea midline. No JVD. CARDIOVASCULAR: Regular rate and rhythm without murmurs, gallops, or rubs. RESPIRATORY: Breath sounds equal bilaterally. No accessory muscle use. GASTROINTESTINAL: Abdomen soft, non-tender, nondistended. MUSCULOSKELETAL: No cyanosis, or edema. BACK: Nontender without obvious deformity. No CVA tenderness. A/P Assessment and Plan //Rhabdomyolysis/ acute renal failure The patient appears dehydrated and has not been taking care of herself since discharge from psychiatry. Her creatinine is elevated and so was her CPK level. Her labs indicate hemoconcentration. Lactic acid level was not elevated. - Continue IV fluids. - Follow BMP and CPK levels. - Avoid nephrotoxic agents. - Encourage by mouth intake. -Continue to hold statin. - PT/OT/ case management consult. -03/23. Patient refusing labs. Initially this morning greed to have labs performed, however subsequently refusing. Appreciate psychiatry assistance. We will restrain patient as necessary to obtain labs, give fluids, and to treat her potentially life-threatening condition. //Elevated troponin EKG with normal sinus rhythm and no ischemic changes. Initial troponin 0.18. Likely secondary to demand ischemia from rhabdomyolysis. - Follow troponins. Patient refusing. - Continue Telemetry. -Order repeat EKG. -Not suspect this is cardiac in origin, as percentage of cardiac CK is low. - Treat rhabdo as above. //Elevated LFTs -Likely artifactual secondary to rhabdo. - Continue prevent for rhabdomyolysis as above. - Trend LFTs. - 10 you to Hold statin. - Check liver ultrasound and hepatitis profile if not improved in a.m. //UTI The patient presents with leukocytosis and left shift. UA is indicative of an infection. Chest x-ray is unremarkable. - Follow urine culture and blood cultures. - Continue Cipro IV. Follow-up cultures. //Acute psychosis The patient has been confused about what she has been doing for the past couple of weeks. She was recently admitted to the psych unit for bipolar disorder. She was started on circumflex: The patient says she has not been taking that medication and believes she is having a bad reaction to the Seroquel. CT of the head unremarkable. Tox screen negative. - Hold Seroquel. -Appreciate psychiatry assistance. When stable, can transfer to psychiatry //Acute kidney injury. -Creatinine 1.2 from normal baseline. -Possibly secondary to rhabdomyolysis. -Continue IV fluids. -Follow labs. -Kidney ultrasound pending. //Diabetes The patient is on glyburide as an outpatient. - Continue to Hold glyburide. - Continue Insulin sliding scale. -Blood sugars acceptable. Continue monitor blood sugars closely. //PPx: Heparin. Discharge Planning When patient is stable, can likely discharge to inpatient psychiatry. Appreciate psychiatry assistance. Possibly discharged inpatient psychiatry in 1-3 days. Appreciate case management assistance. Esteban Whelan MD Mar 23, 2016 14:50
[2016-03-23 15:37] LABS: AUTOMATED NEUTROPHIL # 3.9 TH/MM3 (1.8-7.7); BASOPHIL % 0.5 % (0.0-2.0); EOSINOPHIL # 0.2 TH/MM3 (0-0.4); HEMATOCRIT 33.6 % (35.0-46.0); HEMO FLAGS DIFF FINAL; LYMPH % 25.4 % (9.0-44.0); LYMPHOCYTE # 1.6 TH/MM3 (1.0-4.8); MEAN CELL VOLUME 89.4 FL (80.0-100.0); MEAN CORPUSCULAR HEMOGLOBIN 29.3 PG (27.0-34.0); MEAN CORPUSCULAR HGB CONC 32.8 % (32.0-36.0); MONO % 8.1 % (0.0-8.0); PLATELET COUNT 293 TH/MM3 (150-450); RED BLOOD COUNT 3.76 MIL/MM3 (4.00-5.30); RED CELL DISTRIBUTION WIDTH 14.2 % (11.6-17.2); WHITE BLOOD COUNT 6.2 TH/MM3 (4.0-11.0)
[2016-03-23 15:59] LABS: BICARBONATE 25.2 MEQ/L (21.0-32.0); POTASSIUM 3.4 MEQ/L (3.5-5.1)
[2016-03-23 16:09] LABS: INDIRECT BILIRUBIN 0.6 MG/DL (0.0-0.8); TOTAL BILIRUBIN ADULT 0.7 MG/DL (0.2-1.0)
[2016-03-23 16:21] LABS: CKMB 10.3 NG/ML (0.5-3.6)
--- NOTE | 2016-03-23 17:14 | EKG ---
Date Performed: 03/22/2016 Time Performed: 16:36:50 PTAGE: 66 years EKG: Sinus rhythm LOW QRS VOLTAGE IN PRECORDIAL LEADS When compared to previous tracing, the patient is no longer Tach ycardic. BORDERLINE ECG PREVIOUS TRACING : 03/05/2016 15.43 DOCTOR: Chelsea Awad Interpretating Date/Time 03/23/2016 17:12:18
--- NOTE | 2016-03-23 17:35 | RADRPT ---
EXAM DATE/TIME: 03/23/2016 17:00 [facility] COMPARISON: No previous studies available for comparison. INDICATIONS : Hematuria. MEDICAL HISTORY : Diabetes. SURGICAL HISTORY : Hysterectomy. Left cataract extract. Left retinal repair. Scalp and cranial repair. ENCOUNTER: Initial ACUITY: 3 days PAIN SCORE: 7/10 LOCATION: Bilateral flank MEASUREMENTS: RIGHT KIDNEY: 12.4 x 5.4 x 4.8 cm LEFT KIDNEY: 11.8 x 5.8 x 6.4 cm FINDINGS: RIGHT KIDNEY: Renal cortex is normal in thickness and echotexture. No hydronephrosis, stone, or mass. Question is the faint echogenic foci LEFT KIDNEY: Renal cortex is normal in thickness and echotexture. No hydronephrosis, stone, or mass. Question is the faint echogenic foci BLADDER: Within normal limits given the degree of distension. CONCLUSION: Questionable faint echogenic foci in both kidneys which could represent nonobstructive calculi. This could be further evaluated with CT scan of the kidneys. Sai Estrada MD on March 23, 2016 at 17:31 Board Certified Radiologist. This report was verified electronically.
[2016-03-23] MEDS ORDERED: OLANZapine 2.5 MG TAB PO SCH (21:00)
[2016-03-24] VITALS: BP 113/65; PULSE 72; RESP 17; TEMP 98.3; O2SAT 98
[2016-03-24] MEDS: SODIUM CHLOR 0.9% 1000 ML INJ 1,000 ML IV SCH ×2 (04:06→11:30)
[2016-03-24 04:10] VITALS: BP 147/62; PULSE 75; RESP 17; TEMP 97.2; O2SAT 100
[2016-03-24] MEDS: HEPARIN SODIUM - SQ 10,000 UNITS/ML VIAL SQ SCH ×2 (06:00→12:08)
[2016-03-24] MEDS: INSULIN ASPART SUPPLEMENTAL SCALE SQ SCH ×2 (06:16→11:00)
[2016-03-24] MEDS: DIVALPROEX SODIUM E.R. 250 MG TAB PO SCH (07:53)
[2016-03-24 08:00] VITALS: BP 134/83; PULSE 79; PULSE 84; RESP 17; TEMP 97.4; O2SAT 96
[2016-03-24 10:16] LABS: AUTOMATED NEUTROPHIL # 2.9 TH/MM3 (1.8-7.7); BASOPHIL % 0.7 % (0.0-2.0); EOSINOPHIL # 0.2 TH/MM3 (0-0.4); EOSINOPHIL % 4.2 % (0.0-4.0); HEMATOCRIT 35.3 % (35.0-46.0); HEMO FLAGS DIFF FINAL; LYMPH % 33.4 % (9.0-44.0); LYMPHOCYTE # 1.8 TH/MM3 (1.0-4.8); MEAN CELL VOLUME 89.6 FL (80.0-100.0); MEAN CORPUSCULAR HEMOGLOBIN 29.6 PG (27.0-34.0); MEAN CORPUSCULAR HGB CONC 33.1 % (32.0-36.0); MONO % 8.2 % (0.0-8.0); NEUT % 53.5 % (16.0-70.0); PLATELET COUNT 300 TH/MM3 (150-450); RED BLOOD COUNT 3.94 MIL/MM3 (4.00-5.30); RED CELL DISTRIBUTION WIDTH 14.6 % (11.6-17.2); WHITE BLOOD COUNT 5.4 TH/MM3 (4.0-11.0)
[2016-03-24 10:51] LABS: BICARBONATE 26.5 MEQ/L (21.0-32.0); POTASSIUM 3.4 MEQ/L (3.5-5.1)
--- NOTE | 2016-03-24 11:05 | HHI.PYPN ---
Subjective Remarks Patient was seen for reevaluation to the bedside in her room, she was calm and cooperative, her speech is less pressured than yesterday, and she is not as hyperactive as yesterday, patient states that she has been feeling much better, she denies pain, distress, denies anxiety, she denies depressive symptoms, she describes her mood as "happy", she states that she had a good sleep last night "for the first time in a lot of days", she denies suicidal or homicidal ideation , she denies visual and auditory hallucinations, however tangential and disorganized thought, grandiosity, inflated self esteem, some level of paranoia still observed. Patient is fully oriented 3, no gross cognitive impairment present. Review of Systems Other No significant changes since 03/23/2016 Objective Alert: Yes [place]: Person, Date Mood: Happy Affect: Manic Memory Intact: Immediate, Recent, Remote Hallucinations: Other (none elicited) Delusions: Yes Delusion Type: Grandiose, Paranoid Suicidal: Ideation (she denies) Homicidal: Ideation (she denies) Insight/Judgement Poor Labs Test 03/23/16 03/24/16 15:16 09:18 White Blood Count 6.2 TH/MM3 5.4 TH/MM3 Red Blood Count 3.76 MIL/MM3 3.94 MIL/MM3 Hemoglobin 11.0 GM/DL 11.7 GM/DL Hematocrit 33.6 % 35.3 % Mean Corpuscular Volume 89.4 FL 89.6 FL Mean Corpuscular Hemoglobin 29.3 PG 29.6 PG Mean Corpuscular Hemoglobin 32.8 % 33.1 % Concent Red Cell Distribution Width 14.2 % 14.6 % Platelet Count 293 TH/MM3 300 TH/MM3 Mean Platelet Volume 8.1 FL 8.0 FL Neutrophils (%) (Auto) 63.0 % 53.5 % Lymphocytes (%) (Auto) 25.4 % 33.4 % Monocytes (%) (Auto) 8.1 % 8.2 % Eosinophils (%) (Auto) 3.0 % 4.2 % Basophils (%) (Auto) 0.5 % 0.7 % Neutrophils # (Auto) 3.9 TH/MM3 2.9 TH/MM3 Lymphocytes # (Auto) 1.6 TH/MM3 1.8 TH/MM3 Monocytes # (Auto) 0.5 TH/MM3 0.4 TH/MM3 Eosinophils # (Auto) 0.2 TH/MM3 0.2 TH/MM3 Basophils # (Auto) 0.0 TH/MM3 0.0 TH/MM3 CBC Comment DIFF FINAL DIFF FINAL Differential Comment Sodium Level 141 MEQ/L 144 MEQ/L Potassium Level 3.4 MEQ/L 3.4 MEQ/L Chloride Level 108 MEQ/L 109 MEQ/L Carbon Dioxide Level 25.2 MEQ/L 26.5 MEQ/L Anion Gap 8 MEQ/L 9 MEQ/L Blood Urea Nitrogen 13 MG/DL 7 MG/DL Creatinine 0.72 MG/DL 0.77 MG/DL Estimat Glomerular Filtration 81 ML/MIN 75 ML/MIN Rate Random Glucose 125 MG/DL 118 MG/DL Calcium Level 8.5 MG/DL 8.4 MG/DL Magnesium Level 1.8 MG/DL Total Bilirubin 0.7 MG/DL Direct Bilirubin 0.1 MG/DL Indirect Bilirubin 0.6 MG/DL Aspartate Amino Transf 57 U/L (AST/SGOT) Alanine Aminotransferase 77 U/L (ALT/SGPT) Alkaline Phosphatase 67 U/L Ammonia LESS THAN 10 MCMOL/L Total Creatine Kinase 789 U/L 428 U/L Creatine Kinase MB 10.3 NG/ML Creatine Kinase MB % 1.3 % Troponin I 0.08 NG/ML Total Protein 6.4 GM/DL Albumin 3.2 GM/DL Date/Time Procedure Status Source Growth 03/22/16 18:50 Aerobic Blood Culture - Preliminary Resulted Blood Peripheral NO GROWTH IN 1 DAY 03/22/16 18:50 Anaerobic Blood Culture - Preliminary Resulted Blood Peripheral NO GROWTH IN 1 DAY 03/22/16 18:45 Influenza Types A,B Antigen (NIKKY) - Final Complete Nasal Aspirate NEGATIVE FOR FLU A AND B ANTIGEN.... 03/22/16 16:50 Urine Culture - Final Complete Urine Clean Catch Viridans Streptococcus Grp Vitals/IOs Vital Signs Date Time Temp Pulse Resp B/P Pulse Ox O2 Delivery O2 Flow Rate FiO2 03/24/16 08:00 Room Air 03/24/16 08:00 97.4 79 17 134/83 96 Intake and Output 03/23/16 03/23/16 03/24/16 08:00 16:00 00:00 Intake Total 1446 ml 525 ml 240 ml Output Total 800 ml Balance 1446 ml 525 ml -560 ml Assessment & Plan Problem List: (1) Bipolar disorder with psychotic features Assessment & Plan: On psychiatric reevaluation today patient's continued to be acutely manic, delusional and paranoid, some improvement in psychomotor agitation and pressure as patient noticed, but patient still needs psychiatric admission for stabilization of mica and psychosis. Will continue Depakote 250 mg twice a day for mood stabilization, will order Depakote levels for tomorrow, we will increase olanzapine to 5 mg at bedtime for psychosis, mood stabilization and to help her sleep. Patient is okay to transfer to the med/psych unit, if medically clear could go to regular psychiatry. ICD Code: F31.9 Assessment & Plan Estimated LOS: days Justification for Cont. Inpt. The patient is acutely manic/psychotic, needs psychiatric hospitalization for stabilization and medication adjustment, Car Tobar MD Mar 24, 2016 11:05
[2016-03-24 11:07] LABS: CKMB 5.9 NG/ML (0.5-3.6)
[2016-03-24] MEDS ORDERED: POTASSIUM CHLORIDE 20 MEQ CONTROLLED RELEASE TAB PO ONE (11:30)
[2016-03-24] MEDS ORDERED: DIVA250ER PO (11:32)
[2016-03-24] MEDS ORDERED: GLYB5TAB3 PO (11:32)
[2016-03-24] MEDS ORDERED: OLAN2.5T PO (11:32)
[2016-03-24] MEDS ORDERED: LEVA750T PO (11:32)
[2016-03-24 12:00] VITALS: BP 121/66; PULSE 80; RESP 18; TEMP 97.2; O2SAT 100
[2016-03-24] MEDS: CIPROFLOXACIN 400 MG PREMIX 200 ML IV SCH (12:08)
[2016-03-24] MEDS ORDERED: OLANZapine 2.5 MG TAB PO SCH (21:00)
--- NOTE | 2016-03-24 21:30 | HHI.PR ---
Subjective Remarks Patient seen this morning prior to discharge. She is more cooperative today. She denies any chest pain or shortness of breath. She does report a rash on bilateral legs for the past several days. She does say that several days ago she was walking in the mud and grass with her bare feet, because she thought she had to save somebody. Objective Vital Signs Date Time Temp Pulse Resp B/P Pulse Ox O2 Delivery O2 Flow Rate FiO2 03/24/16 12:00 97.2 80 18 121/66 100 03/24/16 08:00 Room Air 03/24/16 08:00 97.4 79 17 134/83 96 03/24/16 08:00 84 03/24/16 04:10 97.2 75 17 147/62 100 03/24/16 00:00 98.3 72 17 113/65 98 I/O 03/23/16 03/23/16 03/23/16 03/24/16 03/24/16 03/24/16 07:00 15:00 23:00 07:00 15:00 23:00 Intake Total 1446 ml 525 ml 240 ml 480 ml Output Total 800 ml 300 ml Balance 1446 ml 525 ml -560 ml 180 ml Intake Oral 240 ml 525 ml 240 ml 480 ml IV Total 1206 ml Output Urine Total 800 ml 300 ml # Voids 2 # Bowel Movements 1 0 Result Diagram: 03/24/1691703/24/1618 Objective Remarks GENERAL: Patient sitting up in chair. Appears comfortable. She is alert and oriented 3. patient appears slightly more calm today. More cooperative. SKIN: Warm and dry. HEAD: Normocephalic. EYES: No scleral icterus. No injection or drainage. NECK: Supple, trachea midline. No JVD. CARDIOVASCULAR: Regular rate and rhythm without murmurs, gallops, or rubs. RESPIRATORY: Breath sounds equal bilaterally. No accessory muscle use. GASTROINTESTINAL: Abdomen soft, non-tender, nondistended. MUSCULOSKELETAL: No cyanosis, or edema. BACK: Nontender without obvious deformity. No CVA tenderness. A/P Assessment and Plan //Rhabdomyolysis/ acute renal failure The patient appears dehydrated and has not been taking care of herself since discharge from psychiatry. Her creatinine is elevated and so was her CPK level. Her labs indicate hemoconcentration. Lactic acid level was not elevated. - Continue IV fluids. - Follow BMP and CPK levels. - Avoid nephrotoxic agents. - Encourage by mouth intake. -Continue to hold statin. - PT/OT/ case management consult. -03/23. Patient refusing labs. Initially this morning greed to have labs performed, however subsequently refusing. Appreciate psychiatry assistance. We will restrain patient as necessary to obtain labs, give fluids, and to treat her potentially life-threatening condition. -03/24. CK much improved. Renal function stable. Potassium relatively stable. Stable for discharge to inpatient psychiatry. //Elevated troponin EKG with normal sinus rhythm and no ischemic changes. Initial troponin 0.18. Likely false elevation secondary to rhabdomyolysis. -Troponins trended down. Patient refusing. - Continue Telemetry. -Order repeat EKG. -Not suspect this is cardiac in origin, as percentage of cardiac CK is low. - Treat rhabdo as above. //Elevated LFTs -Likely artifactual secondary to rhabdo. - Continue prevent for rhabdomyolysis as above. - Trend LFTs. -Improving. Continue to hold lovastatin //UTI The patient presents with leukocytosis and left shift. UA is indicative of an infection. Chest x-ray is unremarkable. - Follow urine culture and blood cultures. -Status post Cipro IV. -Continue Levaquin for 3 days for Streptococcus viridans UTI. Blood cultures negative 2 days. //Acute psychosis. Improving. The patient has been confused about what she has been doing for the past couple of weeks. She was recently admitted to the psych unit for bipolar disorder. She was started on circumflex: The patient says she has not been taking that medication and believes she is having a bad reaction to the Seroquel. CT of the head unremarkable. Tox screen negative. - Hold Seroquel. -Appreciate psychiatry assistance. When stable, can transfer to psychiatry -03/24. Improving mentation. More cooperative. Discharged to inpatient psychiatry. //Acute kidney injury. Resolved. -Creatinine 1.2 from normal baseline. -Possibly secondary to rhabdomyolysis. -Continue IV fluids. -Follow labs. -Kidney ultrasound with some indication of nonobstructive calculi in both kidneys, however no evidence of hydronephrosis. //Diabetes The patient is on glyburide as an outpatient. - Continue to Hold glyburide. - Continue Insulin sliding scale. -Blood sugars acceptable. Continue monitor blood sugars closely. -03/24. Discharged on lower dose of glyburide. Recent A1c 6.9. //rash bilateral ankles. No evidence of bacterial infection. This is likely secondary to chigger bites from walking in the mud/mark. Recommend continued monitoring. //PPx: Heparin. Discharge Planning discharge inpatient psychiatry. Continue Levaquin to complete treatment for UTI. Appreciate case management assistance. Esteban Whelan MD Mar 24, 2016 21:30
--- NOTE | 2016-03-24 21:37 | HHI.DS ---
Discharge Summary Admission Date Mar 22, 2016 at 18:26 Discharge Date: Mar 24, 2016 Admitting Diagnosis Sepsis, altered mental status (1) Bipolar disorder with psychotic features ICD Code: F31.9 (2) Rhabdomyolysis ICD Code: M62.82 (3) Sepsis ICD Code: A41.9 Procedures no invasive procedures performed Brief History - From Admission The patient is a 66-year-old female with a past medical history of diabetes who was recently admitted to the hospital for bipolar disorder who is presenting to the hospital with confusion. The patient says that she was recently in the hospital for several days and she was told she had bipolar disorder. She said she was discharged on high-dose of Seroquel and she thinks she is having a reaction to it. The patient does not recall the circumstances surrounding her discharge and her presentation to the hospital today. She is very confused about what she has been doing over the past couple of weeks. She says that her mother was on hospice and she just recently . She said she has been speaking with an collections attorney about her situation. She said that she doesn't believe she should've been on the Seroquel at such a high dose. She says her feet do not appear normal. She has not been taking the Seroquel at home. She has been taking her diabetes medication. Her family did arrive in the emergency department and are not sure what has happened to the patient over the past couple of weeks. They did hear that she fell and tripped into a ditch and that is where she got some scars on her feet from. The patient was paranoid about one of her family members and did not want her present at the bedside. The patient said that she did have something she wanted to talk to the doctor about but she said she would like to talk about it later when she is in her room. CBC/BMP: 03/24/1618 03/24/16 0918 Significant Findings Laboratory Tests Test 03/22/16 03/22/16 03/22/16 03/22/16 15:00 16:05 16:50 21:19 White Blood Count 15.7 TH/MM3 (4.0-11.0) Red Blood Count 7.53 MIL/MM3 (4.00-5.30) Hemoglobin 17.4 GM/DL (11.6-15.3) Hematocrit 56.1 % (35.0-46.0) Mean Corpuscular Volume 74.5 FL (80.0-100.0) Mean Corpuscular Hemoglobin 23.1 PG (27.0-34.0) Mean Corpuscular Hemoglobin 31.0 % Concent (32.0-36.0) Red Cell Distribution Width 20.2 % (11.6-17.2) Neutrophils (%) (Auto) 95.3 % (16.0-70.0) Lymphocytes (%) (Auto) 1.7 % (9.0-44.0) Neutrophils # (Auto) 14.9 TH/MM3 (1.8-7.7) Lymphocytes # (Auto) 0.3 TH/MM3 (1.0-4.8) Neutrophils % (Manual) 85 % (16-70) Band Neutrophils % 12 % (0-6) Lymphocytes % 1 % (9-44) Neutrophils # (Manual) 15.2 TH/MM3 (1.8-7.7) Potassium Level 5.5 MEQ/L (3.5-5.1) Anion Gap 4 MEQ/L (5-15) Blood Urea Nitrogen 30 MG/DL (7-18) Creatinine 1.27 MG/DL (0.50-1.00) Estimat Glomerular Filtration 42 ML/MIN (>89) Rate Random Glucose 168 MG/DL (74-106) Indirect Bilirubin 0.9 MG/DL (0.0-0.8) Aspartate Amino Transf 109 U/L (15-37) (AST/SGOT) Alanine Aminotransferase 89 U/L (10-53) (ALT/SGPT) Total Creatine Kinase 2113 U/L (26-192) Creatine Kinase MB 19.9 NG/ML (0.5-3.6) Troponin I 0.18 NG/ML 0.16 NG/ML (0.02-0.05) (0.02-0.05) Albumin 3.3 GM/DL (3.4-5.0) Salicylates Level LESS THAN 1.7 MG/DL (2.8-20.0) Acetaminophen Level LESS THAN 2.0 MCG/ML (10.0-30.0) Urine Protein 100 mg/dL (NEG-TRACE) Urine Occult Blood MOD (NEG) Urine RBC 79 /hpf (0-3) Urine WBC 9 /hpf (0-5) Test 03/23/16 03/24/16 15:16 09:18 Red Blood Count 3.76 MIL/MM3 3.94 MIL/MM3 (4.00-5.30) (4.00-5.30) Hemoglobin 11.0 GM/DL (11.6-15.3) Hematocrit 33.6 % (35.0-46.0) Monocytes (%) (Auto) 8.1 % (0.0-8.0) 8.2 % (0.0-8.0) Potassium Level 3.4 MEQ/L 3.4 MEQ/L (3.5-5.1) (3.5-5.1) Chloride Level 108 MEQ/L 109 MEQ/L (98-107) (98-107) Estimat Glomerular Filtration 81 ML/MIN (>89) 75 ML/MIN (>89) Rate Random Glucose 125 MG/DL 118 MG/DL (74-106) (74-106) Aspartate Amino Transf 57 U/L (15-37) (AST/SGOT) Alanine Aminotransferase 77 U/L (10-53) (ALT/SGPT) Ammonia LESS THAN 10 MCMOL/L (11-32) Total Creatine Kinase 789 U/L 428 U/L (26-192) (26-192) Creatine Kinase MB 10.3 NG/ML 5.9 NG/ML (0.5-3.6) (0.5-3.6) Troponin I 0.08 NG/ML (0.02-0.05) Albumin 3.2 GM/DL (3.4-5.0) Eosinophils (%) (Auto) 4.2 % (0.0-4.0) Calcium Level 8.4 MG/DL (8.5-10.1) Imaging Last Impressions Renal Ultrasound 03/23/16 0000 Signed Impressions: Service Date/Time: Wednesday, March 23, 2016 17:00 - CONCLUSION: Questionable faint echogenic foci in both kidneys which could represent nonobstructive calculi. This could be further evaluated with CT scan of the kidneys. Sai Estrada MD Chest X-Ray 03/22/16 1600 Signed Impressions: Service Date/Time: Tuesday, March 22, 2016 16:12 - CONCLUSION: No acute disease. Sai Estrada MD Head CT 03/22/16 0000 Signed Impressions: Service Date/Time: Tuesday, March 22, 2016 15:48 - CONCLUSION: Negative examination Sai Estrada MD Hospital Course Patient was found to have elevated creatinine kinase 2100, and was treated with IV fluids with marked improvement. recommend continuing to hold statin medication. Hyperkalemia, with potassium 5.5, was treated with IV fluids and improved. Acute kidney injury on admission, with creatinine 1.3 from baseline 0.7, improved with creatinine of 1.0 on discharge. Renal ultrasound didn't show nonobstructing kidney stones. Troponins were elevated on admission, however CK-MB percent only 0.9, low probability; no ischemic changes on EKG. Patient was found to have a UTI secondary to Streptococcus viridans, and will be treated with Levaquin to complete treatment course after initial treatment here with Cipro. She does have a non-confluent papular rash on bilateral ankles , likely secondary to chigger bites from walking through the mud several days prior to admission. For patient's acute psychosis, psychiatry was consult. Patient will be discharged to inpatient psychiatry. Recommend encourage fluids, follow-up basic labs tomorrow. //Rhabdomyolysis/ acute renal failure The patient appears dehydrated and has not been taking care of herself since discharge from psychiatry. Her creatinine is elevated and so was her CPK level. Her labs indicate hemoconcentration. Lactic acid level was not elevated. - Continue IV fluids. - Follow BMP and CPK levels. - Avoid nephrotoxic agents. - Encourage by mouth intake. -Continue to hold statin. - PT/OT/ case management consult. -03/23. Patient refusing labs. Initially this morning greed to have labs performed, however subsequently refusing. Appreciate psychiatry assistance. We will restrain patient as necessary to obtain labs, give fluids, and to treat her potentially life-threatening condition. -03/24. CK much improved. Renal function stable. Potassium relatively stable. Stable for discharge to inpatient psychiatry. //Elevated troponin EKG with normal sinus rhythm and no ischemic changes. Initial troponin 0.18. Likely false elevation secondary to rhabdomyolysis. -Troponins trended down. Patient refusing. - Continue Telemetry. -Order repeat EKG. -Not suspect this is cardiac in origin, as percentage of cardiac CK is low. - Treat rhabdo as above. //Elevated LFTs -Likely artifactual secondary to rhabdo. - Continue prevent for rhabdomyolysis as above. - Trend LFTs. -Improving. Continue to hold lovastatin //UTI The patient presents with leukocytosis and left shift. UA is indicative of an infection. Chest x-ray is unremarkable. - Follow urine culture and blood cultures. -Status post Cipro IV. -Continue Levaquin for 3 days for Streptococcus viridans UTI. Blood cultures negative 2 days. //Acute psychosis. Improving. The patient has been confused about what she has been doing for the past couple of weeks. She was recently admitted to the psych unit for bipolar disorder. She was started on circumflex: The patient says she has not been taking that medication and believes she is having a bad reaction to the Seroquel. CT of the head unremarkable. Tox screen negative. - Hold Seroquel. -Appreciate psychiatry assistance. When stable, can transfer to psychiatry -03/24. Improving mentation. More cooperative. Discharged to inpatient psychiatry. //Acute kidney injury. Resolved. -Creatinine 1.2 from normal baseline. -Possibly secondary to rhabdomyolysis. -Continue IV fluids. -Follow labs. -Kidney ultrasound with some indication of nonobstructive calculi in both kidneys, however no evidence of hydronephrosis. //Diabetes The patient is on glyburide as an outpatient. - Continue to Hold glyburide. - Continue Insulin sliding scale. -Blood sugars acceptable. Continue monitor blood sugars closely. -03/24. Discharged on lower dose of glyburide. Recent A1c 6.9. //PPx: Heparin. Pt Condition on Discharge: Good Discharge Disposition: Disc to Psych Care Fac Discharge Time: > 30 minutes Discharge Instructions DIET: Follow Instructions for: Diabetic Diet Activities you can perform: Regular-No Restrictions New Medications: Levofloxacin (Levaquin) 750 Mg Tab 750 MG PO DAILY Infection Days 3 Ref 0 TAB Divalproex ER (Depakote ER) 250 Mg Ac 250 MG PO Q12HR psychosis Days 30 TAB Olanzapine (Olanzapine) 2.5 Mg Tab 5 MG PO HS psychosis Days 30 TAB Changed Medications: Glyburide (Glyburide) 5 Mg Tab 5 MG PO DAILY Take with meals at the same time each day Blood Sugar Management # 60 Ref 0 TAB (Changed from: 10 MG; BID) Discontinued Medications: Lovastatin (Lovastatin) 20 Mg Tab 20 MG PO DAILY Cholesterol Management #30 Ref 0 TAB Esteban Whelan MD Mar 24, 2016 21:37
== END 2016-03-24 16:47 | DRG 683 ==
LOC: NEDAMB 14:08 → NEDA 18:26 → N05A 03-23 00:16
PROVIDERS: ADMIT Internal Medicine; ATTEND Internal Medicine
DX: N17.9 Acute kidney failure, unspecified (principal); M62.82 Rhabdomyolysis; F31.2 Bipolar disorder, current episode manic severe with psychotic features; N39.0 Urinary tract infection, site not specified; N20.0 Calculus of kidney; E87.5 Hyperkalemia; E86.0 Dehydration; E11.9 Type 2 diabetes mellitus without complications; I10 Essential (primary) hypertension; B88.0 Other acariasis; B95.4 Other streptococcus as the cause of diseases classified elsewhere; Z79.84 Long term (current) use of oral hypoglycemic drugs; Z82.3 Family history of stroke; Z83.3 Family history of diabetes mellitus; Z88.0 Allergy status to penicillin; Z88.5 Allergy status to narcotic agent; Z91.14 Patient's other noncompliance with medication regimen
CPT/HCPCS: 70450; 71010; 76775; 80048; 80076; 80307; 80320; 80329; 81001; 82140; 82550; 82552; 82948; 83605; 83735; 84484; 85007; 85025; 85027; 87040; 87086; 87804; 93005; G0480; G0481; J0744; J1644; J1815; J3370; J7030; J7040; J7050

== ENCOUNTER 2016-03-24 13:38 | Inpatient (IN) | payer MEDICARE, OTHER ==
[~2016-03-24] VITALS: Ht 152.4 cm; Wt 83.7 kg
[~2016-03-24 13:38] MED LIST changes: +DIVA250ER PO; -HYDR-3516 PO; +LEVA750T PO; +OLAN2.5T PO; -QUET1TAB9 PO
[2016-03-24] MEDS ORDERED: ALUMINUM/MAGNESIUM/SIMETH 30 ML CUP PO PRN (17:30)
[2016-03-24] MEDS ORDERED: LORazepam 2 MG/ML VIAL - age > 65 yrs IM PRN (17:30)
[2016-03-24] MEDS ORDERED: MAGNESIUM HYDROXIDE SUSP 30 ML CUP PO PRN (17:30)
[2016-03-24 18:39] VITALS: BP 167/74; PULSE 72; RESP 18; TEMP 98; O2SAT 100
[2016-03-24 18:53] VITALS: BP 167/74; PULSE 72; RESP 18; TEMP 98; O2SAT 100
[2016-03-25 07:48] LABS: ANION GAP 7 MEQ/L (5-15); BICARBONATE 26.2 MEQ/L (21.0-32.0); BLOOD UREA NITROGEN 11 MG/DL (7-18); CHLORIDE 109 MEQ/L (98-107); GLOMERULAR FILTRATION RATE 79 ML/MIN (>89); SODIUM (NA) 142 MEQ/L (136-145)
[2016-03-25 07:49] LABS: HDL CHOLESTEROL 59.7 MG/DL (40.0-60.0); LDL CHOLESTEROL 67 MG/DL (0-99)
[2016-03-25] MEDS ORDERED: GLUCAGON 1 MG/ML VIAL OTHER PRN (08:00)
[2016-03-25] MEDS ORDERED: DEXTROSE 50% IN WATER 50 ML VIAL(D50) IV PUSH PRN (08:00)
[2016-03-25] MEDS: LEVOFLOXACIN 500 MG TAB PO SCH (09:00)
[2016-03-25] MEDS ORDERED: amLODIPine BESYLATE 5 MG TAB PO ONE (09:45)
--- NOTE | 2016-03-25 09:45 | PD.CONS ---
HPI Service [facility] Hospitalists Consult Requested By Psychiatric services Reason for Consult Medical management Primary Care Physician Bjorn Herrera MD Diagnoses: History of Present Illness The patient is a 66-year-old female with a past medical history of diabetes who was recently admitted to the hospital for bipolar disorder who is presenting to the hospital with confusion. Patient was admitted to [facility] treated for rhabdomyolysis, acute renal failure, elevated troponin likely related to rhabdomyolysis, LFTs, UTI. Patient was discharged 03/24/2016 to inpatient psychiatric center with been consulted for assistance with medical management. At this time patient is ambulating about day room appears to be in no acute distress. Patient evaluated and in her room only complaint is bilateral lower extremity tingling. Reports she did have some urinary urgency and incontinence which seems to be getting better. Patient denies shortness of breath chest pain nausea vomiting diarrhea constipation fevers or chills. Past Family Social History Allergies: Coded Allergies: Penicillin (Unverified Allergy, Severe, CONVULSIONS, 03/22/16) Darvon (Unverified Adverse Reaction, Severe, VOMITING, 03/22/16) Past Medical History Bipolar disorder Diabetes Hypertension Displaced right shoulder fracture Past Surgical History Left cataract extraction Left retinal repair Total abdominal hysterectomy and bilateral salpingo-oophorectomy Sculpin cranial repair secondary to head trauma Reported Medications Olanzapine 2.5 Mg Tab 5 Mg PO HS 30 Days Depakote ER (Divalproex Sodium) 250 Mg Ac 250 Mg PO Q12HR 30 Days Levaquin (Levofloxacin) 750 Mg Tab 750 Mg PO DAILY 3 Days Glyburide 5 Mg Tab 5 Mg PO DAILY Take with meals at the same time each day Active Ordered Medications Current Medications Medications (Trade) Dose Ordered Sig/Evita Route Start Time Stop Time Status Last Admin (Ativan) 0.5 mg Q12H PRN PO 03/24/16 17:30 Hold (Ativan Inj) 0.5 mg Q12H PRN IM 03/24/16 17:30 Hold (ZyPREXA) 5 mg DAILY PO 03/25/16 09:00 Hold (Depakote Er) 250 mg BID PO 03/24/16 21:00 (Tylenol) 650 mg Q4H PRN PO 03/24/16 17:30 (Milk Of Magnesia Liq) 30 ml DAILY PRN PO 03/24/16 17:30 (Mag-Al Plus Susp Liq) 30 ml Q6H PRN PO 03/24/16 17:30 (Levaquin) 500 mg DAILY PO 03/25/16 09:00 03/28/16 08:59 (D50w (Vial) Inj) 25 ml UNSCH PRN IV PUSH 03/25/16 08:00 (Glucagon Inj) 1 mg UNSCH PRN OTHER 03/25/16 08:00 Family History Diabetes and CVA Social History The patient does not smoke. She drinks alcohol occasionally. She denies illicit drug use. Physical Exam Vital Signs Vital Signs Date Time Temp Pulse Resp B/P Pulse Ox O2 Delivery O2 Flow Rate FiO2 03/24/16 18:53 98.0 72 18 167/74 100 03/24/16 18:39 98.0 72 18 167/74 100 Physical Exam GENERAL: Patient sitting up in chair. Appears to be in no acute distress SKIN: Warm and dry. HEAD: Normocephalic. EYES: No scleral icterus. No injection or drainage. NECK: Supple, trachea midline. No JVD. CARDIOVASCULAR: Regular rate and rhythm without murmurs, gallops, or rubs. RESPIRATORY: Breath sounds equal bilaterally. No accessory muscle use. GASTROINTESTINAL: Abdomen soft, non-tender, nondistended. MUSCULOSKELETAL: No cyanosis, or edema. BACK: Nontender without obvious deformity. No CVA tenderness. Laboratory Laboratory Tests Test 03/25/16 06:56 Sodium Level 142 Potassium Level 4.0 Chloride Level 109 Carbon Dioxide Level 26.2 Anion Gap 7 Blood Urea Nitrogen 11 Creatinine 0.74 Estimat Glomerular Filtration 79 Rate Random Glucose 139 Calcium Level 8.6 Triglycerides Level 118 Cholesterol Level 150 LDL Cholesterol 67 HDL Cholesterol 59.7 Cholesterol/HDL Ratio 2.51 Result Diagram: 03/25/16 0656 Assessment and Plan Assessment and Plan Acute psychosis - management per psychiatric team Rhabdomyolysis- improving acute renal failure- resolved -Kidney ultrasound with some indication of nonobstructive calculi in both kidneys, however no evidence of hydronephrosis. Likely secondary to dehydration and has not been taking care of herself since discharge from psychiatry. Her creatinine is elevated and so was her CPK level. Her labs indicate hemoconcentration. Lactic acid level was not elevated. -Encourage by mouth fluid intake - Follow BMP reviewed and stable - CPK level for today 350 -Continue to hold statin. Elevated troponin- on initial admission 03/22/2016 0.18 --> 0.16 --> 0.08 Likely false elevation secondary to rhabdomyolysis. EKG with normal sinus rhythm and no ischemic changes. -Troponins trended down. -Not suspect this is cardiac in origin, as percentage of cardiac CK is low. - Treat rhabdo as above. Hypertension - Started Norvasc 5 mg daily continue to monitor blood pressure - Monitor blood pressure - Patient reports she got welts after taking lisinopril will avoid lisinopril Elevated LFTs -Likely artifactual secondary to rhabdo. - Continue prevent for rhabdomyolysis as above. - LFTs Trended down. - Continue to hold lovastatin UTI The patient presents with leukocytosis and left shift. UA is indicative of an infection. Chest x-ray is unremarkable. - Follow urine culture and blood cultures. -Status post Cipro IV. -Continue Levaquin for 3 days for Streptococcus viridans UTI. Blood cultures negative 2 days. Diabetes The patient is on glyburide as an outpatient -Restart glyburide - Continue Insulin sliding scale. -Blood sugars acceptable. Continue monitor Accu-Cheks before meals at bedtime with sliding scale insulin coverage -Recent A1c 6.9. rash bilateral ankles. No evidence of bacterial infection. This is likely secondary to chigger bites from walking in the mud/mark. Recommend continued monitoring. Bilateral lower extremity neuropathy will start gabapentin DVT prophylaxis patient is ambulatory Thank you for the consultation and for allowing us to participate in the care of this patient Discussed plan of care with patient and RN Written by Annemarie Saavedra, acting as scribe for Dr. Orta on 03/25/16 at 1700. The documentation accurately reflects the work performed [id number] by me on at around 1700. Annemarie Saavedra Mar 25, 2016 09:45 Michelle Orta DO Mar 25, 2016 18:38
[2016-03-25 10:28] LABS: CKMB 6.8 NG/ML (0.5-3.6)
[2016-03-25] MEDS: INSULIN ASPART SUPPLEMENTAL SCALE SQ SCH ×3 (11:00→20:36)
--- NOTE | 2016-03-25 11:51 | HHI.HP ---
Provisional Diagnosis Admission Date Mar 24, 2016 at 13:38 [place] I. History of bipolar disorder. Schizoaffective disorder bipolar type. [place] II. No diagnosis [place] III. Please see the LMD's note [place] IV. Moderate stress difficulty coping and noncompliance in taking medication [place] V. GAF of 45 Certification of Person's Competence To Provide Express and Informed Consent I have personally examined Larissa Blandon , a person being served at [facility] on, Mar 25, 2016 11:39. Express and informed consent means consent voluntarily given in writing, by a competent person, after sufficient explanation and disclosure of the subject matter involved to enable the person to make a knowing and willful decision without any element of force, fraud, deceit, duress, or other form of constraint or coercion. This person is 18 years of age or older, is not now known to be incompetent to consent to treatment with a guardian advocate, and does not have a health care surrogate or proxy currently making medical treatment decisions. I have found this person to be one of the following: [x] Competent to provide express and informed consent, as defined above, for voluntary admission to this facility and is competent to provide express and informed consent for treatment. He/she has the consistent capacity to make well reasoned, willful, and knowing decisions concerning his or her medical or mental health treatment. The person fully and consistently understands the purpose of the admission for examination/placement and is fully capable of personally exercising all rights assured under [place] Incompetent to provide express and informed consent to voluntary admission, and this is incompetent to provide express and informed consent to treatment. The person must be transferred to involuntary status and a petition for a guardian advocate filed with the Circuit Court. [] Refusing to provide express and informed consent to voluntary admission but is competent to provide express and informed consent for treatment. The person must be discharged or transferred to involuntary status. Form shall be completed within 24 hours of a person's arrival at the receiving facility and filed in the clinical record of each person: 1. Admitted on a voluntary basis 2. Permitted to provide express and informed consent to his/her own treatment 3. Allowed to transfer from involuntary to voluntary status 4. Prior to permitting a person to consent to his or her own treatment after having been previously found incompetent to consent to treatment. History of Present Illness Capacity: Has Capacity HPI This is a 66-year-old white female with a past history of bipolar affective disorder was recently discharged from [facility]. Comes back because of noncompliance in taking medication and feeling confused. She also reported that her mother was on hospice and recently . She was not taking her Seroquel reportedly patient was very disruptive and paranoid towards the staff and agitated. Once she was medically stable she was transferred to psychiatric unit for further care patient was somewhat hypomanic and hyperverbal more energy sleeping less. Some grandiose ideas. Wanting to go back to [place] where she has her millions of dollars she claimed that she has to PhD's in to muster's degree. Patient denies any alcohol or drug use and/or abuse. Denies any suicidal ideation intentions or plan. No behavior or management problem reported. She is willing to cooperate and participate in all the treatment and sign voluntary Review of Systems Except as stated in HPI: all other systems reviewed are Neg Psychiatric: COMPLAINS OF: Confusion, Mood changes, Delusions Past Psych History Psychological trauma history Patient denied any history of physical verbal or sexual abuse growing up Violence risk - others (6 mos) Patient denies Violence risk - self (6 mos) Patient did admit to some suicidal thoughts in the past but not at the present time Substance Abuse History Drugs/Alcohol past 12 months Patient denies any alcohol or drug abuse Past Family Social History Coded Allergies: Penicillin (Unverified Allergy, Severe, CONVULSIONS, 03/22/16) Darvon (Unverified Adverse Reaction, Severe, VOMITING, 03/22/16) Active Scripts Olanzapine 2.5 Mg Tab5 Mg PO HS 30 Days Prov:Esteban Whelan MD 03/24/16 Divalproex ER (Depakote ER)250 Mg [id number] Mg PO Q12HR 30 Days Prov:Esteban Whelan MD 03/24/16 Levofloxacin (Levaquin)750 Mg [id number] Mg PO DAILY 3 Days Ref 0 Prov:Esteban Whelan MD 03/24/16 Glyburide 5 Mg Tab5 Mg PO DAILY #60 TAB Ref 0 Take with meals at the same time each day Prov:Esteban Whelan MD 03/24/16 Discontinued Reported Medications Lovastatin 20 Mg Tab20 Mg PO DAILY #30 TAB Ref 0 03/05/16 Glyburide 5 Mg Tab10 Mg PO BID #60 TAB Ref 0 Take with meals at the same time each day 03/05/16 Hydrocodone-Acetaminophen 5-325 mg Tab1 Tab PO Q4H PRN (PAIN) Ref 0 03/05/16 Discontinued Scripts Quetiapine 200 Mg [id number] Mg PO HS 14 Days Ref 1 Prov:Onel Garcia MD 03/10/16 Current Medications Medications (Trade) Dose Ordered Sig/Evita Route Start Time Stop Time Status Last Admin (Ativan) 0.5 mg Q12H PRN PO 03/24/16 17:30 (Ativan Inj) 0.5 mg Q12H PRN IM 03/24/16 17:30 (ZyPREXA) 5 mg DAILY PO 03/25/16 09:00 (Depakote Er) 250 mg BID PO 03/24/16 21:00 (Tylenol) 650 mg Q4H PRN PO 03/24/16 17:30 (Milk Of Magnesia Liq) 30 ml DAILY PRN PO 03/24/16 17:30 (Mag-Al Plus Susp Liq) 30 ml Q6H PRN PO 03/24/16 17:30 (Levaquin) 500 mg DAILY PO 03/25/16 09:00 03/28/16 08:59 (D50w (Vial) Inj) 25 ml UNSCH PRN IV PUSH 03/25/16 08:00 (Glucagon Inj) 1 mg UNSCH PRN OTHER 03/25/16 08:00 (Norvasc) 5 mg DAILY PO 03/26/16 09:00 Family History Positive for alcoholism and depression and mood swings Social History Patient was born in [place]. She is the only child. She was very close to her parents her mother just and she was in a depression. Her childhood was described as happy she denied any physical verbal sexual abuse growing up. She did finish high school and college with master's degree in psychology she has been for 17 years and she has 2 children of son and a girl. Her son has a problem drinking. Patient's Strengths (min. 2) Patient is cooperative willing to take the medication and sign voluntary Physical Exam Please see the LMD's note patient does not complain much except some swelling of the leg but medically she was stable and cleared to come to psychiatric floor Vital Signs Vital Signs Date Time Temp Pulse Resp B/P Pulse Ox O2 Delivery O2 Flow Rate FiO2 03/24/16 18:53 98.0 72 18 167/74 100 Mental Status Examination This is a 66-year-old white female who looks about the same as her stated age was mildly overweight was alert oriented 3 cooperative casually dressed her speech was not pressured or rapid at this time. Without any evidence of loose association was goal-directed her mood was described as missing her mother but otherwise doing okay her affect was labile. She denied any suicidal ideation intentions or plan. Denied any active auditory or visual hallucinations. There was some may be grandiose delusion. She seems to be of average intelligence with poor recent memory. Her insight is fair and her judgment seems to be okay on hypothetical situation there is no abnormal gait. Her language was normal fund of knowledge was average Previous Suicide Attempts: No Previous Homicide Attempts: No Assessment & Plan Problem List: (1) Bipolar affective disorder, current episode hypomanic ICD Code: F31.0 Assessment & Plan Estimated LOS:5 days. This is a 66-year-old white female with a history of bipolar affective disorder or schizoaffective disorder bipolar type. Had noncompliance in taking medication and was decompensated and came back. She is willing to take the medication and follow-up as an outpatient once stable.. Admit observe and evaluate and treatment. Patient will sign voluntary. She'll participate in all the therapeutic activity on the floor. Side effect another alternative treatment were explained to the patient. We will resume her medication and titrated according to her need and response. Vital signs every shift. Request HC Surrog/Guard Advoc?: Onel Her MD Mar 25, 2016 11:50
[2016-03-25 11:59] LABS: HEMOGLOBIN A1a 1.2 %; HEMOGLOBIN A1b 0.9 %; HEMOGLOBIN Ao 82.5 %; HEMOGLOBIN F 1.5 %; HEMOGLOBIN LA1C 2.4 %; HEMOGLOBIN P3 4.1 %
[2016-03-25] MEDS ORDERED: DIVALPROEX SODIUM DELAYED RELEASE 250 MG TAB PO SCH (12:00)
[2016-03-25] MEDS ORDERED: PILL SPLITTER OTHER PRN (12:15)
[2016-03-25] MEDS: GABAPENTIN 100 MG CAP PO SCH (18:00)
[2016-03-25 18:28] VITALS: BP 146/77; PULSE 77; RESP 18; TEMP 98.5; O2SAT 10
[2016-03-25] MEDS: QUEtiapine FUMARATE 300 MG TAB PO SCH (20:36)
[2016-03-25] MEDS: DIVALPROEX SODIUM E.R. 250 MG TAB PO SCH (20:36)
[2016-03-25] MEDS: ACETAMINOPHEN 325 MG TAB PO PRN (21:00)
[2016-03-26 05:15] VITALS: BP 184/92; PULSE 99; RESP 16; TEMP 97.9
[2016-03-26] MEDS: LORazepam 0.5 MG TAB age > 65 yrs PO PRN (05:46)
[2016-03-26] MEDS: ACETAMINOPHEN 325 MG TAB PO PRN (05:47)
[2016-03-26] MEDS: INSULIN ASPART SUPPLEMENTAL SCALE SQ SCH ×4 (07:00→20:12)
[2016-03-26] MEDS ORDERED: glyBURIDE 5 MG TAB PO SCH (08:00)
[2016-03-26] MEDS ORDERED: amLODIPine BESYLATE 5 MG TAB PO SCH (09:00)
[2016-03-26] MEDS: LEVOFLOXACIN 500 MG TAB PO SCH (09:09)
[2016-03-26] MEDS: DIVALPROEX SODIUM E.R. 250 MG TAB PO SCH ×2 (09:09→20:06)
[2016-03-26] MEDS: OLANZapine 5 MG TAB PO SCH (09:09)
[2016-03-26] MEDS: GABAPENTIN 100 MG CAP PO SCH ×3 (09:10→17:41)
--- NOTE | 2016-03-26 11:18 | HHI.PYPN ---
Subjective Remarks Patient was seen and discussed with the direct support staff. Patient feels frustrated and wants to go back on the medical floor. She complain about pain and swelling of her leg. And would like to be evaluated by and LMD. The order has already been in. Awaiting LMD to evaluate.. No behavior or management problem reported but patient gets easily confused and agitated. Patient denied any suicidal ideation intentions or plan. Denied any active auditory or visual hallucinations. Continue with the same treatment. Review of Systems Except as stated in HPI: all other systems reviewed are Neg Psychiatric: COMPLAINS OF: Confusion, Mood changes, Depression, Hallucinations Objective Alert: Yes [place]: Person, Place Mood: Agitated (gets easily agitated), Depressed, Other Affect: Labile Memory Intact: Recent (impaired) Hallucinations: Other (patient denies any active auditory or visual hallucinations but occasionally talks to herself) Delusions: Yes Delusion Type: Paranoid Suicidal: Ideation (denied any suicidal ideation intentions or plan) Homicidal: Ideation (denies) Insight/Judgement Fair to limited Remarks Attention and concentration improving. Gait normal. Language normal. Fund of knowledge average Vitals/IOs Vital Signs Date Time Temp Pulse Resp B/P Pulse Ox O2 Delivery O2 Flow Rate FiO2 03/26/16 05:15 97.9 99 16 184/92 03/25/16 18:28 10 Assessment & Plan Problem List: (1) Bipolar affective disorder, current episode hypomanic ICD Code: F31.0 Assessment & Plan Estimated LOS: days Justification for Cont. Inpt. Monitoring of the medication and risk of decompensation Request HC Surrog/Guard Advoc?: No Onel Garcia MD Mar 26, 2016 11:18
[2016-03-26 19:03] VITALS: BP 188/82; PULSE 108; RESP 18; TEMP 97; O2SAT 96
[2016-03-26] MEDS: QUEtiapine FUMARATE 300 MG TAB PO SCH (20:06)
[2016-03-27 06:01] VITALS: BP 166/87; PULSE 97; RESP 18; TEMP 98.1; O2SAT 98
[2016-03-27] MEDS: INSULIN ASPART SUPPLEMENTAL SCALE SQ SCH ×4 (06:29→20:12)
[2016-03-27] MEDS ORDERED: cloNIDine HCL 0.1 MG TAB PO PRN (08:00)
[2016-03-27] MEDS: DIVALPROEX SODIUM E.R. 250 MG TAB PO SCH ×2 (08:49→20:05)
[2016-03-27] MEDS: LEVOFLOXACIN 500 MG TAB PO SCH (08:49)
[2016-03-27] MEDS: OLANZapine 5 MG TAB PO SCH (08:50)
[2016-03-27] MEDS: GABAPENTIN 100 MG CAP PO SCH ×3 (08:50→17:39)
--- NOTE | 2016-03-27 12:50 | HHI.PR ---
Blank section for building Patient's blood pressure remains elevated we will increase Norvasc to 10 mg daily Glucose 70 this a.m. will decrease glyburide to 2.5 mg daily continued sliding scale insulin coverage with Accu-Cheks before meals at bedtime (Annemarie Saavedra) Annemarie Saavedra Mar 27, 2016 12:50 pm Michelle Orta DO Mar 27, 2016 2:09 pm
--- NOTE | 2016-03-27 15:38 | HHI.PYPN ---
Subjective Remarks Patient was seen and case discussed with nursing. Patient signed right of release, but she is confused thinking that that paperwork will keep her in the hospital. Multiple attempts to explain the process of her stay here gets patient more confused. Thought processes disorganized. Her other patients she is walking around collecting DNA evidence. Poor insight into her mental health and admission. She is compliant with medications Objective Alert: Yes [place]: Person, Place Mood: Agitated (gets easily agitated), Depressed, Other Affect: Labile Memory Intact: Recent (impaired) Hallucinations: Other (patient denies any active auditory or visual hallucinations but occasionally talks to herself) Delusions: Yes Delusion Type: Paranoid Suicidal: Ideation (denied any suicidal ideation intentions or plan) Homicidal: Ideation (denies) Insight/Judgement Poor Vitals/IOs Vital Signs Date Time Temp Pulse Resp B/P Pulse Ox O2 Delivery O2 Flow Rate FiO2 03/27/16 06:01 98.1 97 18 166/87 98 Assessment & Plan Problem List: (1) Bipolar affective disorder, current episode hypomanic ICD Code: F31.0 Assessment & Plan Patient does not have capacity to resend her right of release or understand legal process. We will start a petition Justification for Cont. Inpt. Patient will decompensate in a less restrictive setting Request HC Surrog/Guard Advoc?: No Chong Vargas DO Mar 27, 2016 15:38
[2016-03-27 18:51] VITALS: BP 143/97; PULSE 101; RESP 18; TEMP 97.4; O2SAT 97
[2016-03-27] MEDS: QUEtiapine FUMARATE 300 MG TAB PO SCH (20:05)
[2016-03-28 06:19] VITALS: BP 165/72; PULSE 86; RESP 18; TEMP 97.8; O2SAT 98
[2016-03-28] MEDS: INSULIN ASPART SUPPLEMENTAL SCALE SQ SCH ×4 (06:30→21:00)
[2016-03-28] MEDS: DIVALPROEX SODIUM E.R. 250 MG TAB PO SCH ×2 (08:55→21:43)
[2016-03-28] MEDS: glyBURIDE 5 MG TAB PO SCH (08:55)
[2016-03-28] MEDS: HYDROCHLOROTHIAZIDE 12.5 MG CAP PO SCH (08:55)
[2016-03-28] MEDS: OLANZapine 5 MG TAB PO SCH (08:55)
[2016-03-28] MEDS: GABAPENTIN 100 MG CAP PO SCH ×3 (08:55→17:47)
--- NOTE | 2016-03-28 11:31 | HHI.PR ---
Subjective Remarks Follow up HTN Patient tangential in speech concerned that people are, "making fun of her," and , "picking on her." Offers no medical complaints. Patient denies headache, changes in vision, chest pain, SOB, cough congestion, fevers or chills. Objective Vitals Vital Signs Date Time Temp Pulse Resp B/P Pulse Ox O2 Delivery O2 Flow Rate FiO2 03/28/16 06:19 97.8 86 18 165/72 98 03/27/16 18:51 97.4 101 18 143/97 97 Result Diagram: 03/25/16 0656 Objective Remarks GENERAL: Patient sitting up in chair. Appears to be in no acute distress SKIN: Warm and dry. HEAD: Normocephalic. EYES: No scleral icterus. No injection or drainage. NECK: Supple, trachea midline. No JVD. CARDIOVASCULAR: Regular rate and rhythm without murmurs, gallops, or rubs. RESPIRATORY: Breath sounds equal bilaterally. No accessory muscle use. GASTROINTESTINAL: Abdomen soft, non-tender, nondistended. MUSCULOSKELETAL: No cyanosis, BLE edema BACK: Nontender without obvious deformity. No CVA tenderness. A/P Assessment and Plan Acute psychosis - management per psychiatric team Rhabdomyolysis- improved Hypertension -continue Norvasc 10 mg daily continue to monitor blood pressure- now c/o BLE edema however unable to use FELICITA or ARB due to hives - add HCTZ - Monitor blood pressure - Patient reports she got welts after taking lisinopril will avoid lisinopril Elevated LFTs -Likely artifactual secondary to rhabdo. - Continue prevent for rhabdomyolysis as above. - LFTs Trended down. - Continue to hold lovastatin UTI The patient presents with leukocytosis and left shift. UA is indicative of an infection. Chest x-ray is unremarkable. - Follow urine culture and blood cultures. -Status post Cipro IV. -Continue Levaquin total of 3 days for Streptococcus viridans UTI. Blood cultures negative 5 days. Diabetes -decrease glyburide to 2.5mg daily - Continue Insulin sliding scale. - Continue monitor Accu-Cheks before meals at bedtime with sliding scale insulin coverage -Recent A1c 6.9. rash bilateral ankles- improving. No evidence of bacterial infection. This is likely secondary to chigger bites from walking in the mud/mark. Recommend continued monitoring. Bilateral lower extremity neuropathy improving with gabapentin BLE edema likly secondary to Norvasc but with resent rhabdomyolysis will check US to R/O DVT DVT prophylaxis patient is ambulatory Discussed plan of care with patient, RN and Annemarie Spaulding Mar 28, 2016 11:31 am Michelle Orta DO Mar 28, 2016 1:00 pm
--- NOTE | 2016-03-28 13:07 | HHI.PYPN ---
Subjective Remarks Patient was seen and case discussed with nursing. Today patient is paranoid and irritable. She thinks that staff are whispering about her. Patient believes that other patients are calling her "redhaired bitch." Denies auditory visual hallucinations. Remains confused about her legal status here in the hospital. Denies suicidal ideations thought or plan. Compliant with medications. Seen by medical doctor for leg edema and is perseverant on various somatic complaints Objective Alert: Yes [place]: Person, Place Mood: Agitated (gets easily agitated), Depressed, Other Affect: Labile Memory Intact: Recent (impaired) Hallucinations: Other (patient denies any active auditory or visual hallucinations but occasionally talks to herself) Delusions: Yes Delusion Type: Paranoid Suicidal: Ideation (denied any suicidal ideation intentions or plan) Homicidal: Ideation (denies) Insight/Judgement Poor Vitals/IOs Vital Signs Date Time Temp Pulse Resp B/P Pulse Ox O2 Delivery O2 Flow Rate FiO2 03/28/16 06:19 97.8 86 18 165/72 98 Assessment & Plan Problem List: (1) Bipolar affective disorder, current episode hypomanic ICD Code: F31.0 Assessment & Plan Continue current treatment plan Justification for Cont. Inpt. Patient would decompensate in a less restrictive setting Request HC Surrog/Guard Advoc?: No Chong Vargas DO Mar 28, 2016 13:07
--- NOTE | 2016-03-28 17:23 | RADRPT ---
EXAM DATE/TIME: 03/28/2016 16:10 [facility] COMPARISON: No previous studies available for comparison. INDICATIONS : Leg pain. Emboli. MEDICAL HISTORY : Diabetes. Depression. Hallucinations. SURGICAL HISTORY : Scalp and cranial repair. Left cataract surgery. ENCOUNTER: Initial ACUITY: 3 weeks PAIN SCORE: 8/10 LOCATION: Bilateral legs TECHNIQUE: Venous ultrasound of the left and right leg was performed from the inguinal ligament to the proximal calf. Real-time, color Doppler and spectral tracing, compression and augmentation techniques were us ed. FINDINGS: RIGHT LEG: There is normal compressibility of the deep venous system from the inguinal region to the proximal ca lf. No echogenic clot is seen in the lumen of the common femoral, femoral, popliteal, and posterior tibial veins. There is a normal response of the venous system to proximal and distal augmentation an d respiration. LEFT LEG: There is normal compressibility of the deep venous system from the inguinal region to the proximal ca lf. No echogenic clot is seen in the lumen of the common femoral, femoral, popliteal, and posterior tibial veins. There is a normal response of the venous system to proximal and distal augmentation an d respiration. CONCLUSION: The study is negative for deep venous thrombosis bilateral lower extremity. Carmelo Hardwick MD on March 28, 2016 at 17:21 Board Certified Radiologist. This report was verified electronically.
[2016-03-28] MEDS: LORazepam 0.5 MG TAB age > 65 yrs PO PRN (18:17)
[2016-03-28 19:13] VITALS: BP 126/61; PULSE 92; RESP 16; TEMP 97.5; O2SAT 100
[2016-03-28] MEDS: QUEtiapine FUMARATE 300 MG TAB PO SCH (21:43)
[2016-03-29 05:34] VITALS: BP 155/89; PULSE 88; RESP 16; TEMP 94.4; O2SAT 99
[2016-03-29] MEDS: INSULIN ASPART SUPPLEMENTAL SCALE SQ SCH ×4 (07:00→20:26)
[2016-03-29] MEDS: glyBURIDE 5 MG TAB PO SCH (08:00)
[2016-03-29] MEDS: DIVALPROEX SODIUM E.R. 250 MG TAB PO SCH ×2 (09:00→20:27)
[2016-03-29] MEDS: GABAPENTIN 100 MG CAP PO SCH ×3 (09:00→17:16)
[2016-03-29] MEDS: HYDROCHLOROTHIAZIDE 12.5 MG CAP PO SCH (09:00)
[2016-03-29] MEDS: OLANZapine 5 MG TAB PO SCH (09:00)
--- NOTE | 2016-03-29 10:53 | HHI.PYPN ---
Subjective Remarks Patient was seen and discussed with the staffing assistant. Patient claimed that she feels depressed and feels like people are making fun of her she cries she gets easily agitated. She wants to get her medical problems taken care of. She was paranoid. But denied any suicidal ideation intentions or plan. She is willing to sign voluntary. Will check if medical investigator has already seen her and explained what needs to be done. And tinea with the same treatment. Review of Systems Except as stated in HPI: all other systems reviewed are Neg Psychiatric: COMPLAINS OF: Mood changes, Depression, Agitation, Delusions Objective Alert: Yes [place]: Person, Place Mood: Agitated (gets easily agitated), Depressed, Other Affect: Labile Memory Intact: Recent (impaired) Hallucinations: Other (patient denies any active auditory or visual hallucinations but occasionally talks to herself) Delusions: Yes Delusion Type: Paranoid Suicidal: Ideation (denied any suicidal ideation intentions or plan) Homicidal: Ideation (denies) Insight/Judgement Fair to limited Vitals/IOs Vital Signs Date Time Temp Pulse Resp B/P Pulse Ox O2 Delivery O2 Flow Rate FiO2 03/29/16 05:34 94.4 88 16 155/89 99 Assessment & Plan Problem List: (1) Bipolar affective disorder, current episode hypomanic ICD Code: F31.0 Assessment & Plan Estimated LOS: days Justification for Cont. Inpt. Risk of decompensation at a lower level of care Request HC Surrog/Guard Advoc?: No Onel Garcia MD Mar 29, 2016 10:53
--- NOTE | 2016-03-29 11:40 | HHI.PR ---
Subjective Remarks Follow up HTN Patient concerned about bilateral lower extremity edema. Patient denies headache, changes in vision, chest pain, SOB, cough congestion, fevers or chills. Objective Vitals Vital Signs Date Time Temp Pulse Resp B/P Pulse Ox O2 Delivery O2 Flow Rate FiO2 03/29/16 05:34 94.4 88 16 155/89 99 03/28/16 19:13 97.5 92 16 126/61 100 Result Diagram: 03/25/16 0656 Imaging Last Impressions Lower Extremity Ultrasound 03/28/16 0000 Signed Impressions: Service Date/Time: Monday, March 28, 2016 16:10 - CONCLUSION: The study is negative for deep venous thrombosis bilateral lower extremity. Carmelo Hardwick MD Objective Remarks GENERAL: Patient sitting up in chair. Appears to be in no acute distress SKIN: Warm and dry. HEAD: Normocephalic. EYES: No scleral icterus. No injection or drainage. NECK: Supple, trachea midline. No JVD. CARDIOVASCULAR: Regular rate and rhythm without murmurs, gallops, or rubs. RESPIRATORY: Breath sounds equal bilaterally. No accessory muscle use. GASTROINTESTINAL: Abdomen soft, non-tender, nondistended. MUSCULOSKELETAL: No cyanosis, BLE edema BACK: Nontender without obvious deformity. No CVA tenderness. A/P Assessment and Plan Acute psychosis - management per psychiatric team Rhabdomyolysis- improved Hypertension -Discontinue Norvasc secondary to bilateral lower extremity edema we'll start hydralazine 10 mg 3 times a day -Continue HCTZ - Monitor blood pressure - Patient reports she got welts after taking lisinopril will avoid lisinopril Elevated LFTs -Likely artifactual secondary to rhabdo. Also on Depakote - Continue prevent for rhabdomyolysis as above. - LFTs Trended down. - Continue to hold lovastatin UTI The patient presents with leukocytosis and left shift. UA is indicative of an infection. Chest x-ray is unremarkable. - Follow urine culture and blood cultures. -Status post Cipro IV. -s/p Levaquin total of 3 days for Streptococcus viridans UTI. Blood cultures negative 5 days. Diabetes -continue glyburide to 2.5mg daily - Continue Insulin sliding scale. - Continue monitor Accu-Cheks before meals at bedtime with sliding scale insulin coverage -Recent A1c 6.9. rash bilateral ankles- improving. No evidence of bacterial infection. This is likely secondary to chigger bites from walking in the mud/mark. Recommend continued monitoring. Bilateral lower extremity neuropathy improving with gabapentin BLE edema continue Ultrasound negative for DVT bilaterally Will DC Norvasc and start hydralazine DVT prophylaxis patient is ambulatory Discussed plan of care with patient, RN Written by Annemarie Saavedra, acting as scribe for Dr. Hawkins on 03/29/16 at 11:40. The documentation accurately reflects the work performed [id number] by me on at 1140 Annemarie Saavedra Mar 29, 2016 11:40 Abiel Hawkins MD Mar 29, 2016 14:48
[2016-03-29] MEDS: hydrALAZINE HCL 10 MG TAB PO SCH ×2 (14:00→21:15)
[2016-03-29 19:54] VITALS: BP 158/65; PULSE 75; RESP 16; TEMP 97.5; O2SAT 98
[2016-03-29] MEDS: QUEtiapine FUMARATE 300 MG TAB PO SCH (20:27)
[2016-03-30 05:38] VITALS: BP 103/59; PULSE 82; RESP 18; TEMP 96.9; O2SAT 100
[2016-03-30] MEDS: hydrALAZINE HCL 10 MG TAB PO SCH ×3 (05:58→20:40)
[2016-03-30] MEDS: INSULIN ASPART SUPPLEMENTAL SCALE SQ SCH ×4 (05:59→21:00)
[2016-03-30] MEDS: HYDROCHLOROTHIAZIDE 12.5 MG CAP PO SCH (09:00)
[2016-03-30] MEDS: DIVALPROEX SODIUM E.R. 250 MG TAB PO SCH ×2 (09:01→20:39)
[2016-03-30] MEDS: GABAPENTIN 100 MG CAP PO SCH ×3 (09:01→17:33)
[2016-03-30] MEDS: glyBURIDE 5 MG TAB PO SCH (09:01)
[2016-03-30] MEDS: OLANZapine 5 MG TAB PO SCH (09:01)
--- NOTE | 2016-03-30 10:24 | HHI.PYPN ---
Subjective Remarks Patient was seen and discussed with the production staff worker. Patient remained somewhat somatically preoccupied and worried about her legs and arm and chest. But she could be reassured. She denied any active auditory or visual hallucinations. Denied any suicidal and/or homicidal ideation intentions or plan. No behavior or management problem reported. She is compliant in taking medication. She claimed that she has been sleeping better. No side effects were complained. Continue with the same treatment Review of Systems Except as stated in HPI: all other systems reviewed are Neg Psychiatric: COMPLAINS OF: Mood changes, Depression Objective Alert: Yes [place]: Person, Place, Situation Mood: Depressed Affect: Labile Memory Intact: Recent (impaired) Hallucinations: Other (patient denies any active auditory or visual hallucinations but occasionally talks to herself) Delusions: Yes Delusion Type: Paranoid Suicidal: Ideation (denied any suicidal ideation intentions or plan) Homicidal: Ideation (denies) Insight/Judgement Limited to fair Vitals/IOs Vital Signs Date Time Temp Pulse Resp B/P Pulse Ox O2 Delivery O2 Flow Rate FiO2 03/30/16 05:38 96.9 82 18 103/59 100 Assessment & Plan Problem List: (1) Bipolar affective disorder, current episode hypomanic ICD Code: F31.0 Assessment & Plan Estimated LOS: days Justification for Cont. Inpt. Monitoring of the medication Request HC Surrog/Guard Advoc?: No Onel Garcia MD Mar 30, 2016 10:24
[2016-03-30 13:00] VITALS: BP 137/88; PULSE 82
[2016-03-30] MEDS: QUEtiapine FUMARATE 300 MG TAB PO SCH (20:40)
[2016-03-30 21:12] VITALS: BP 163/71; PULSE 86; RESP 18; TEMP 98; O2SAT 100
[2016-03-31] MEDS: hydrALAZINE HCL 10 MG TAB PO SCH ×3 (05:27→21:29)
[2016-03-31] MEDS: INSULIN ASPART SUPPLEMENTAL SCALE SQ SCH ×4 (05:43→21:41)
[2016-03-31 06:03] VITALS: BP 156/80; PULSE 78; RESP 18; TEMP 97.6; O2SAT 98
[2016-03-31 08:06] LABS: ALKALINE PHOSPHATASE 55 U/L (45-117); ALT (GPT) 45 U/L (10-53); ANION GAP 8 MEQ/L (5-15); AST (GOT) 16 U/L (15-37); BICARBONATE 28.3 MEQ/L (21.0-32.0); BLOOD UREA NITROGEN 15 MG/DL (7-18); CHLORIDE 105 MEQ/L (98-107); GLOMERULAR FILTRATION RATE 81 ML/MIN (>89); INDIRECT BILIRUBIN 0.2 MG/DL (0.0-0.8); POTASSIUM 3.9 MEQ/L (3.5-5.1); SODIUM (NA) 141 MEQ/L (136-145); TOTAL BILIRUBIN ADULT 0.3 MG/DL (0.2-1.0)
[2016-03-31] MEDS: OLANZapine 5 MG TAB PO SCH (08:33)
[2016-03-31] MEDS: DIVALPROEX SODIUM E.R. 250 MG TAB PO SCH ×2 (08:33→20:45)
[2016-03-31] MEDS: HYDROCHLOROTHIAZIDE 12.5 MG CAP PO SCH (08:33)
[2016-03-31] MEDS: GABAPENTIN 100 MG CAP PO SCH ×3 (08:33→18:00)
--- NOTE | 2016-03-31 10:43 | HHI.PYPN ---
Subjective Remarks Patient was seen and discussed with the staff genetic counselor. Patient remained somewhat somatically preoccupied. Gets easily confused and ambivalent. But she could be redirected and reassured. No behavior or management problem reported. Denied any active auditory or visual hallucinations. Continue with the same treatment Review of Systems Except as stated in HPI: all other systems reviewed are Neg Psychiatric: COMPLAINS OF: Mood changes, Depression, Delusions Objective Alert: Yes [place]: Person, Place, Situation Mood: Depressed Affect: Labile Memory Intact: Recent (impaired) Hallucinations: Other (patient denies any active auditory or visual hallucinations but occasionally talks to herself) Delusions: Yes Delusion Type: Paranoid Suicidal: Ideation (denied any suicidal ideation intentions or plan) Homicidal: Ideation (denies) Insight/Judgement Limited Labs Test 03/31/16 03/31/16 07:00 08:37 Sodium Level 141 MEQ/L Potassium Level 3.9 MEQ/L Chloride Level 105 MEQ/L Carbon Dioxide Level 28.3 MEQ/L Anion Gap 8 MEQ/L Blood Urea Nitrogen 15 MG/DL Creatinine 0.72 MG/DL Estimat Glomerular Filtration 81 ML/MIN Rate Random Glucose 110 MG/DL Calcium Level 9.1 MG/DL Total Bilirubin 0.3 MG/DL Direct Bilirubin LESS THAN 0.1 MG/DL Indirect Bilirubin 0.2 MG/DL Aspartate Amino Transf 16 U/L (AST/SGOT) Alanine Aminotransferase 45 U/L (ALT/SGPT) Alkaline Phosphatase 55 U/L Total Protein 6.4 GM/DL Albumin 3.1 GM/DL B-Type Natriuretic Peptide 24 PG/ML Vitals/IOs Vital Signs Date Time Temp Pulse Resp B/P Pulse Ox O2 Delivery O2 Flow Rate FiO2 03/31/16 06:03 97.6 78 18 156/80 98 Assessment & Plan Problem List: (1) Bipolar affective disorder, current episode hypomanic ICD Code: F31.0 Assessment & Plan Estimated LOS: days Justification for Cont. Inpt. Risk of decompensation Request HC Surrog/Guard Advoc?: No Onel Garcia MD Mar 31, 2016 10:43
--- NOTE | 2016-03-31 14:24 | HHI.PR ---
Subjective Remarks Follow-up visit HTN, bilateral lower extremity edema, DM 2. Patient seen today. States she is doing well. Bilateral lower extremity edema still present but not worsening. Denies pain and discomfort. Denies SOB/ dyspnea. Denies chest pain, palpitations, headaches, dizziness. Denies fevers, chills, n/ v/d. Objective Vitals Vital Signs Date Time Temp Pulse Resp B/P Pulse Ox O2 Delivery O2 Flow Rate FiO2 03/31/16 06:03 97.6 78 18 156/80 98 03/30/16 21:12 98.0 86 18 163/71 100 I/O 03/30/16 03/30/16 03/30/16 03/31/16 03/31/16 03/31/16 07:00 15:00 23:00 07:00 15:00 23:00 Intake Total 240 ml Balance 240 ml Intake Oral 240 ml Result Diagram: 03/31/16 0700 Imaging Last Impressions Lower Extremity Ultrasound 03/28/16 0000 Signed Impressions: Service Date/Time: Monday, March 28, 2016 16:10 - CONCLUSION: The study is negative for deep venous thrombosis bilateral lower extremity. Carmelo Hardwick MD Objective Remarks GENERAL: This is a well-nourished, well-developed patient, in no apparent distress. SKIN: Warm and dry. HEENT: Normocephalic. Pupils equal round and reactive. Nose without bleeding. Airway patent. NECK: Trachea midline. No JVD. Supple. CARDIOVASCULAR: Regular rate and rhythm without murmurs, gallops, or rubs. RESPIRATORY: Clear to auscultation. Breath sounds equal bilaterally. No wheezes , rales, or rhonchi. GASTROINTESTINAL: Abdomen soft, non-tender, nondistended. Bowel Sounds normoactive x4. MUSCULOSKELETAL: Extremities without clubbing, cyanosis, bilateral lower extremity +1 edema. NEUROLOGICAL: Awake and alert. Oriented x 3. No focal neuro deficit. PETERSON. Normal speech. A/P Problem List: (1) Bipolar affective disorder, current episode hypomanic ICD Code: F31.0 Status: Acute (2) DM type 2 (diabetes mellitus, type 2) ICD Code: E11.9 Status: Chronic (3) HLD (hyperlipidemia) ICD Code: E78.5 Status: Chronic (4) Rhabdomyolysis ICD Code: M62.82 Status: Acute (5) HTN (hypertension) ICD Code: I10 Status: Chronic Assessment and Plan Patient is a 66-year-old female who came to the hospital with confusion. Previously admitted and discharged 03/22/2016 treated for rhabdomyolysis, JOVANNY, elevated troponin likely related to rhabdomyolysis, LFTs UTI. Admitted to inpatient psychiatry unit for further evaluation. Consulted for medical management. Acute psychosis - management per psychiatric team Rhabdomyolysis- improved Hypertension - Discontinue Norvasc secondary to bilateral lower extremity edema we'll start hydralazine 10 mg 3 times a day -Continue HCTZ - Monitor blood pressure - Patient reports she got welts after taking lisinopril will avoid lisinopril Elevated LFTs - Likely artifactual secondary to rhabdo. Also on Depakote - Continue prevent for rhabdomyolysis as above. - LFTs Trended down. - Continue to hold lovastatin UTI The patient presents with leukocytosis and left shift. UA is indicative of an infection. Chest x-ray is unremarkable. - Follow urine culture and blood cultures. -Status post Cipro IV. -s/p Levaquin total of 3 days for Streptococcus viridans UTI. Blood cultures negative 5 days. Diabetes - discontinue glyburide to 2.5mg daily secondary to hypoglycemia - Continue Insulin sliding scale. - Continue monitor Accu-Cheks before meals at bedtime with sliding scale insulin coverage. If blood glucose remains to be within normal Will DC Accu- Cheks. - Recent A1c 6.9. - May have to switch to Januvia for diabetes management. rash bilateral ankles- improving. No evidence of bacterial infection. This is likely secondary to chigger bites from walking in the mud/mark. Recommend continued monitoring. Bilateral lower extremity neuropathy improving with gabapentin BLE edema continue Ultrasound negative for DVT bilaterally DC Norvasc and start hydralazine - not worsening May use EFREN stockings. DVT prophylaxis patient is ambulatory Discussed with patient, nursing Written by Jaxson Isidro, acting as scribe for Dr. Hawkins on 03/31/16 at 14:33. The documentation accurately reflects the work performed [id number] by me on at 16:23. Jaxson Hopson Mar 31, 2016 14:24 Abiel Hawkins MD Mar 31, 2016 16:23
[2016-03-31] MEDS: QUEtiapine FUMARATE 300 MG TAB PO SCH (20:45)
[2016-03-31 20:55] VITALS: BP 159/67; PULSE 99; RESP 18; TEMP 97.7; O2SAT 100
[2016-03-31] MEDS: LORazepam 0.5 MG TAB age > 65 yrs PO PRN (21:30)
[2016-04-01] MEDS: hydrALAZINE HCL 10 MG TAB PO SCH ×3 (05:45→20:49)
[2016-04-01] MEDS: INSULIN ASPART SUPPLEMENTAL SCALE SQ SCH ×2 (06:05→11:00)
[2016-04-01 06:38] VITALS: BP 136/88; PULSE 80; RESP 18; TEMP 97.2; O2SAT 99
[2016-04-01] MEDS: OLANZapine 5 MG TAB PO SCH (08:27)
[2016-04-01] MEDS: HYDROCHLOROTHIAZIDE 12.5 MG CAP PO SCH (08:27)
[2016-04-01] MEDS: DIVALPROEX SODIUM E.R. 250 MG TAB PO SCH ×2 (08:27→20:49)
[2016-04-01] MEDS: GABAPENTIN 100 MG CAP PO SCH ×3 (08:28→18:15)
--- NOTE | 2016-04-01 10:23 | HHI.PYPN ---
Subjective Remarks Patient was seen and discussed with the senior staff psychologist. Patient claimed that she has been feeling much better and would like to go home soon. She is willing to continue to take her medication. She denied any auditory or visual hallucinations or mind racing or grandiose ideas at this time. Denied any suicidal ideation intentions or plan. No side effects other than itching were complained. Continue with the same treatment Review of Systems Except as stated in HPI: all other systems reviewed are Neg Psychiatric: COMPLAINS OF: Depression Objective Alert: Yes [place]: Person, Place, Situation Mood: Depressed Affect: Labile Memory Intact: Recent (impaired) Hallucinations: Other (patient denies any active auditory or visual hallucinations but occasionally talks to herself) Delusions: Yes Delusion Type: Paranoid Suicidal: Ideation (denied any suicidal ideation intentions or plan) Homicidal: Ideation (denies) Insight/Judgement Fair to limited Vitals/IOs Vital Signs Date Time Temp Pulse Resp B/P Pulse Ox O2 Delivery O2 Flow Rate FiO2 04/01/16 06:38 97.2 80 18 136/88 99 Intake and Output 03/31/16 03/31/16 04/01/16 08:00 16:00 00:00 Intake Total 240 ml Balance 240 ml Assessment & Plan Problem List: (1) Bipolar affective disorder, current episode hypomanic ICD Code: F31.0 Assessment & Plan Estimated LOS: days Justification for Cont. Inpt. Risk of decompensation Request HC Surrog/Guard Advoc?: No Onel Garcia MD Apr 01, 2016 10:23
--- NOTE | 2016-04-01 16:47 | HHI.PR ---
Subjective Remarks Follow hypertension and diabetes mellitus. Patient has no new complaints but she is happy fingerstick monitoring will be discontinued. Discussed with RN Objective Vitals Vital Signs Date Time Temp Pulse Resp B/P Pulse Ox O2 Delivery O2 Flow Rate FiO2 04/01/16 06:38 97.2 80 18 136/88 99 03/31/16 20:55 97.7 99 18 159/67 100 I/O 03/31/16 03/31/16 03/31/16 04/01/16 04/01/16 04/01/16 07:00 15:00 23:00 07:00 15:00 23:00 Intake Total 240 ml Balance 240 ml Intake Oral 240 ml Result Diagram: 03/31/16 0700 Objective Remarks GENERAL: This is a well-nourished, well-developed patient, in no apparent distress. SKIN: Warm and dry. HEENT: Normocephalic. Pupils equal round and reactive. Nose without bleeding. Airway patent. NECK: Trachea midline. No JVD. Supple. CARDIOVASCULAR: Regular rate and rhythm without murmurs, gallops, or rubs. RESPIRATORY: Clear to auscultation. Breath sounds equal bilaterally. No wheezes , rales, or rhonchi. GASTROINTESTINAL: Abdomen soft, non-tender, nondistended. Bowel Sounds normoactive x4. MUSCULOSKELETAL: Extremities without clubbing, cyanosis but with improving bilateral lower extremity +1 edema. NEUROLOGICAL: Awake and alert. Oriented x 3. No focal neuro deficit. PETERSON. Normal speech. A/P Problem List: (1) Bipolar affective disorder, current episode hypomanic ICD Code: F31.0 Status: Acute (2) DM type 2 (diabetes mellitus, type 2) ICD Code: E11.9 Status: Chronic (3) HLD (hyperlipidemia) ICD Code: E78.5 Status: Chronic (4) Rhabdomyolysis ICD Code: M62.82 Status: Acute (5) HTN (hypertension) ICD Code: I10 Status: Chronic Assessment and Plan Patient is a 66-year-old female who came to the hospital with confusion. Previously admitted and discharged 03/22/2016 treated for rhabdomyolysis, JOVANNY, elevated troponin likely related to rhabdomyolysis, LFTs UTI. Admitted to inpatient psychiatry unit for further evaluation. Consulted for medical management. Acute psychosis - management per psychiatric team Rhabdomyolysis- improved Hypertension - Discontinue Norvasc secondary to bilateral lower extremity edema we'll start hydralazine 10 mg 3 times a day - Continue HCTZ - Monitor blood pressure - Patient reports she got welts after taking lisinopril will avoid lisinopril - 2/2. BP improving Elevated LFTs - Likely artifactual secondary to rhabdo. Also on Depakote - Continue prevent for rhabdomyolysis as above. - LFTs Trended down. -Restart lovastatin UTI The patient presents with leukocytosis and left shift. UA is indicative of an infection. Chest x-ray is unremarkable. - Follow urine culture and blood cultures. -Status post Cipro IV. -s/p Levaquin total of 3 days for Streptococcus viridans UTI. Blood cultures negative 5 days. Diabetes - discontinue glyburide to 2.5mg daily secondary to hypoglycemia - Continue Insulin sliding scale. - Continue monitor Accu-Cheks before meals at bedtime with sliding scale insulin coverage. If blood glucose remains to be within normal Will DC Accu- Cheks. - Recent A1c 6.9. - May have to switch to Januvia for diabetes management. -2/2 fingerstick stable will discontinue sliding scale rash bilateral ankles- improving. No evidence of bacterial infection. This is likely secondary to chigger bites from walking in the mud/mark. Recommend continued monitoring. Bilateral lower extremity neuropathy improving with gabapentin BLE edema continue Ultrasound negative for DVT bilaterally DC Norvasc and start hydralazine - not worsening May use EFREN stockings. DVT prophylaxis patient is ambulatory Discussed with patient, nursing Discharge Planning Patient medically stable. We'll sign off Abiel Hawkins MD Apr 01, 2016 16:47
[2016-04-01 19:33] VITALS: BP 140/61; PULSE 81; RESP 16; TEMP 97.9; O2SAT 98
[2016-04-01] MEDS: QUEtiapine FUMARATE 300 MG TAB PO SCH (20:50)
[2016-04-02 05:40] VITALS: BP 159/69; PULSE 85; RESP 16; TEMP 98.1; O2SAT 98
[2016-04-02] MEDS: hydrALAZINE HCL 10 MG TAB PO SCH ×3 (05:54→21:14)
[2016-04-02] MEDS: OLANZapine 5 MG TAB PO SCH (08:32)
[2016-04-02] MEDS: DIVALPROEX SODIUM E.R. 250 MG TAB PO SCH ×2 (08:32→20:35)
[2016-04-02] MEDS: GABAPENTIN 100 MG CAP PO SCH ×3 (08:32→17:02)
[2016-04-02] MEDS: HYDROCHLOROTHIAZIDE 12.5 MG CAP PO SCH (08:32)
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
[2016-04-02 19:28] VITALS: BP 114/58; PULSE 94; RESP 16; TEMP 98.2; O2SAT 98
[2016-04-02] MEDS: QUEtiapine FUMARATE 300 MG TAB PO SCH (20:35)
[2016-04-03 05:34] VITALS: BP 113/62; PULSE 90; RESP 16; TEMP 97.4; O2SAT 98
[2016-04-03] MEDS: hydrALAZINE HCL 10 MG TAB PO SCH ×3 (05:53→22:00)
[2016-04-03] MEDS: DIVALPROEX SODIUM E.R. 250 MG TAB PO SCH ×2 (08:43→20:40)
[2016-04-03] MEDS: OLANZapine 5 MG TAB PO SCH (08:43)
[2016-04-03] MEDS: GABAPENTIN 100 MG CAP PO SCH ×3 (08:43→18:45)
[2016-04-03] MEDS: HYDROCHLOROTHIAZIDE 12.5 MG CAP PO SCH (08:44)
--- NOTE | 2016-04-03 17:52 | HHI.PYPN ---
Subjective Remarks Pt seen and discussed with staff. Pt is compliant with medications and tolerating them without side effects. No SI/HI. Decreased paranoia. No behavioral problems Objective Alert: Yes [place]: Person, Place, Date, Situation Mood: Depressed Affect: Labile Memory Intact: Recent (impaired) Hallucinations: Other (patient denies any active auditory or visual hallucinations but occasionally talks to herself) Delusions: Yes Delusion Type: Paranoid Suicidal: Ideation (denied any suicidal ideation intentions or plan) Homicidal: Ideation (denies) Insight/Judgement limited Vitals/IOs Vital Signs Date Time Temp Pulse Resp B/P Pulse Ox O2 Delivery O2 Flow Rate FiO2 04/03/16 05:34 97.4 90 16 113/62 98 Assessment & Plan Problem List: (1) Bipolar affective disorder, current episode hypomanic ICD Code: F31.0 Assessment & Plan Continue current tx plan. Estimated LOS: days Justification for Cont. Inpt. impairments in reality construction Request HC Surrog/Guard Advoc?: No Muriel Jc MD Apr 03, 2016 17:52
[2016-04-03 18:56] VITALS: BP 165/65; PULSE 78; RESP 18; TEMP 97.8; O2SAT 98
[2016-04-03] MEDS: QUEtiapine FUMARATE 300 MG TAB PO SCH (20:40)
[2016-04-04 05:56] VITALS: BP 120/56; PULSE 79; RESP 17; TEMP 98; O2SAT 100
[2016-04-04] MEDS: hydrALAZINE HCL 10 MG TAB PO SCH ×3 (06:08→22:00)
[2016-04-04] MEDS: DIVALPROEX SODIUM E.R. 250 MG TAB PO SCH ×2 (08:20→21:00)
[2016-04-04] MEDS: OLANZapine 5 MG TAB PO SCH (08:20)
[2016-04-04] MEDS: GABAPENTIN 100 MG CAP PO SCH ×3 (08:20→18:19)
[2016-04-04] MEDS: HYDROCHLOROTHIAZIDE 12.5 MG CAP PO SCH (08:20)
--- NOTE | 2016-04-04 13:04 | HHI.PYPN ---
Subjective Remarks Pt seen and discussed with staff. Staff report pt remains suspicious about medications but is compliant. No medication side effects. No SI/HI. Objective Alert: Yes [place]: Person, Place, Date, Situation Mood: Calm Affect: Restricted Memory Intact: Immediate, Recent, Remote Hallucinations: Other (patient denies any active auditory or visual hallucinations but occasionally talks to herself) Delusions: Yes Delusion Type: Paranoid Suicidal: Ideation (denied any suicidal ideation intentions or plan) Homicidal: Ideation (denies) Insight/Judgement limited Vitals/IOs Vital Signs Date Time Temp Pulse Resp B/P Pulse Ox O2 Delivery O2 Flow Rate FiO2 04/04/16 05:56 98.0 79 17 120/56 100 Assessment & Plan Problem List: (1) Bipolar affective disorder, current episode hypomanic ICD Code: F31.0 Assessment & Plan Continue current tx plan. Estimated LOS: days Justification for Cont. Inpt. impairments in reality construction. risk of decompensation Request HC Surrog/Guard Advoc?: No Muriel Jc MD Apr 04, 2016 13:04
[2016-04-04 18:35] VITALS: BP 135/63; PULSE 96; RESP 18; TEMP 98.5; O2SAT 99
[2016-04-04] MEDS: QUEtiapine FUMARATE 300 MG TAB PO SCH (21:00)
[2016-04-04] MEDS: LORazepam 0.5 MG TAB age > 65 yrs PO PRN (21:30)
[2016-04-05 04:54] VITALS: BP 104/57; PULSE 82; RESP 16; TEMP 97.5; O2SAT 98
[2016-04-05] MEDS: hydrALAZINE HCL 10 MG TAB PO SCH ×3 (06:00→21:25)
[2016-04-05 07:43] LABS: BICARBONATE 28.8 MEQ/L (21.0-32.0)
[2016-04-05] MEDS: OLANZapine 5 MG TAB PO SCH (09:10)
[2016-04-05] MEDS: DIVALPROEX SODIUM E.R. 250 MG TAB PO SCH ×2 (09:10→21:00)
[2016-04-05] MEDS: HYDROCHLOROTHIAZIDE 12.5 MG CAP PO SCH (09:10)
[2016-04-05] MEDS: GABAPENTIN 100 MG CAP PO SCH ×3 (09:10→16:44)
--- NOTE | 2016-04-05 13:08 | HHI.PYPN ---
Subjective Remarks Patient was seen and discussed with the medical staff coordinator. Patient claimed that she has been feeling 100% better. She has talked to her son who is going to take over everything from next month for her so she doesn't have to worry about all the expenses. She denied any auditory or visual hallucinations. She denied any suicidal ideation intentions or plan. No side effects were complained. She is compliant with the medication. We will assess social service manager for predischarge planning and hopefully she'll be able to go home tomorrow Review of Systems Except as stated in HPI: all other systems reviewed are Neg Psychiatric: COMPLAINS OF: Mood changes Objective Alert: Yes [place]: Person, Place, Date, Situation Mood: Calm Affect: Restricted Memory Intact: Immediate, Recent, Remote Hallucinations: Other (patient denies any active auditory or visual hallucinations.) Delusions: Yes Delusion Type: Other (no obvious delusional material voiced) Suicidal: Ideation (denied any suicidal ideation intentions or plan) Homicidal: Ideation (denies) Insight/Judgement Fair Labs Test 04/05/16 06:55 Sodium Level 142 MEQ/L Potassium Level 4.0 MEQ/L Chloride Level 107 MEQ/L Carbon Dioxide Level 28.8 MEQ/L Anion Gap 6 MEQ/L Blood Urea Nitrogen 16 MG/DL Creatinine 0.65 MG/DL Estimat Glomerular Filtration 91 ML/MIN Rate Random Glucose 149 MG/DL Calcium Level 8.8 MG/DL Vitals/IOs Vital Signs Date Time Temp Pulse Resp B/P Pulse Ox O2 Delivery O2 Flow Rate FiO2 04/05/16 04:54 97.5 82 16 104/57 98 Assessment & Plan Problem List: (1) Bipolar affective disorder, current episode hypomanic ICD Code: F31.0 Assessment & Plan Estimated LOS: days Justification for Cont. Inpt. Monitoring of the medication to stabilize mood prior to her discharge Request HC Surrog/Guard Advoc?: No Onel Garcia MD Apr 05, 2016 13:08
[2016-04-05 18:58] VITALS: BP 154/67; PULSE 84; RESP 18; TEMP 97.8; O2SAT 98
[2016-04-05] MEDS: QUEtiapine FUMARATE 300 MG TAB PO SCH (21:00)
[2016-04-06] MEDS: hydrALAZINE HCL 10 MG TAB PO SCH ×2 (06:00→14:25)
[2016-04-06 06:19] VITALS: BP 142/78; PULSE 79; RESP 17; TEMP 97.3; O2SAT 100
[2016-04-06] MEDS: HYDROCHLOROTHIAZIDE 12.5 MG CAP PO SCH (08:15)
[2016-04-06] MEDS: OLANZapine 5 MG TAB PO SCH (08:15)
[2016-04-06] MEDS: GABAPENTIN 100 MG CAP PO SCH ×2 (08:15→12:41)
[2016-04-06] MEDS: DIVALPROEX SODIUM E.R. 250 MG TAB PO SCH (08:16)
--- NOTE | 2016-04-06 13:32 | HHI.DS ---
Psychiatry Discharge Summary Inpatient Psychiatric care?: Yes Advance Directive: No Reason Not Provided: Due to Patient Condition Mental Health AdvanceDirective: No Health Care Proxy: No Admission Admission Date Mar 24, 2016 at 13:38 Admission Diagnosis: (1) Schizoaffective disorder, bipolar type ICD Code: F25.0 (2) Bipolar affective disorder, current episode hypomanic ICD Code: F31.0 GAF Score: 45 Brief History This is a 66-year-old white female with a past history of bipolar affective disorder was recently discharged from [facility]. Comes back because of noncompliance in taking medication and feeling confused. She also reported that her mother was on hospice and recently . She was not taking her Seroquel reportedly patient was very disruptive and paranoid towards the staff and agitated. Once she was medically stable she was transferred to psychiatric unit for further care patient was somewhat hypomanic and hyperverbal more energy sleeping less. Some grandiose ideas. Wanting to go back to [place] where she has her millions of dollars she claimed that she has to PhD's in to muster's degree. Patient denies any alcohol or drug use and/or abuse. Denies any suicidal ideation intentions or plan. No behavior or management problem reported. She is willing to cooperate and participate in all the treatment and sign voluntary Tobacco Use In Past 30 Days: No Tobacco Past 30 Days Alcohol Use: Monthly or Less Hospital Course Patient was started on supportive treatment. She persevered in some of the therapeutic activity on the floor. Her medication was adjusted. She started to feel better more in touch with reality. No behavior or management problem reported. Denied any suicidal and/or grandiose ideas denied any auditory or visual hallucinations at that point arrangements were made for her to be discharged and follow-up as an outpatient Results Blood Pressure 142 / 78 Vital Signs Date Time Temp Pulse Resp B/P Pulse Ox O2 Delivery O2 Flow Rate FiO2 04/06/16 06:19 97.3 79 17 142/78 100 Laboratory Tests Test 04/05/16 06:55 Random Glucose 149 MG/DL (74-106) Summary of Major Lab Results Nothing significant Summary of Procedures None Imaging Last Impressions Lower Extremity Ultrasound 03/28/16 0000 Signed Impressions: Service Date/Time: Monday, March 28, 2016 16:10 - CONCLUSION: The study is negative for deep venous thrombosis bilateral lower extremity. Carmelo Hardwick MD Pending results at discharge: No Medications # of Antipsychotic meds at D/C: 1 Appropriate >1 Antipsych meds?: 2 Approp Antipsych med options 1 - Minimum of three failed multiple trials of monotherapy. Discharge Discharge Date: Apr 06, 2016 Discharge Diagnosis: (1) Schizoaffective disorder, bipolar type Diagnosis: [place] ICD Code: F25.0 (2) Bipolar affective disorder, current episode hypomanic Diagnosis: [place] ICD Code: F31.0 Mental Status Exam at Disch Patient was alert oriented 3 cooperative casually dressed. Her speech was clear spontaneous. Her thoughts are organized. No grandiose delusion. Denied any suicidal ideation intentions or plan. Denied any auditory or visual hallucinations. No behavior or management problem reported. She was willing to follow-up as an outpatient and take the medication Pt Condition on Discharge: Stable Discharge Disposition: Discharge Home Discharge Instructions Diet Instructions: As Tolerated, No Restrictions Activities you can perform: Regular-No Restrictions Scheduled Appointment: Bassem Krishnan Discharge Time <= 30 minutes Discharge/Advance Care Plan Health Problems: (1) Bipolar affective disorder, current episode hypomanic Goals to promote your health * To prevent worsening of your condition and complications * To maintain your health at the optimal level Directions to meet your goals Take your medications as prescribed Follow your dietary instruction Follow activity as directed Keep your appointments as scheduled Take your immunizations and boosters as scheduled If your symptoms worsen call your PCP, if no PCP go to Urgent Care Center or Emergency Room For 20/09 questions related to your inpatient stay or results of tests pending at discharge, please contact Dr. Onel Garcia at Smoking is Dangerous to Your Health. Avoid second hand smoking Onel Garcia MD Apr 06, 2016 13:32
[2016-04-06] MEDS ORDERED: OLAN5TAB PO (13:35)
[2016-04-06] MEDS ORDERED: GABA100C4 PO (13:35)
[2016-04-06] MEDS ORDERED: DIVA250ER PO (13:35)
[2016-04-06] MEDS ORDERED: QUET1TAB10 PO (13:35)
== END 2016-04-06 16:15 | disposition home or self-care (01) | DRG 885 ==
LOC: H260 13:38
PROVIDERS: ADMIT Psychiatry & Neurology Psychiatry; ATTEND Psychiatry & Neurology Psychiatry
DX: F25.0 Schizoaffective disorder, bipolar type (principal); M62.82 Rhabdomyolysis; N39.0 Urinary tract infection, site not specified; F31.0 Bipolar disorder, current episode hypomanic; E11.9 Type 2 diabetes mellitus without complications; I10 Essential (primary) hypertension; G57.93 Unspecified mononeuropathy of bilateral lower limbs; R21 Rash and other nonspecific skin eruption; E78.5 Hyperlipidemia, unspecified; E86.0 Dehydration; R60.0 Localized edema; Z91.19 Patient's noncompliance with other medical treatment and regimen; Z90.710 Acquired absence of both cervix and uterus; Z87.442 Personal history of urinary calculi; Z79.84 Long term (current) use of oral hypoglycemic drugs
CPT/HCPCS: 80048; 80061; 80076; 82550; 82552; 82948; 83036; 83880; 93970; J1815; J2060